=== PATIENT | male | born 1960 ===

== ENCOUNTER 2024-04-10 12:53 | Outpatient (REF) | payer BC, SELFPAY ==
--- NOTE | ~2024-04-10 | US_ITS ---
Procedure: Endovascular ablation of the left greater saphenous vein and left smaller saphenous vein with VenaSeal HISTORY: Varicose veins INDICATIONS: Symptomatically varicose veins left lower extremity. Symptoms include pain, swelling, PROCEDURE/FINDINGS: Informed consent was obtained following a discussion of the risks and benefits of the procedure with the patient. The patient was placed supine on the ultrasound procedure table. Preliminary ultrasound demonstrates dilated refluxing left greater saphenous vein. A site was marked on the left medial leg . The left leg was sterilely prepped and draped. Following the administration of 1% lidocaine for local anesthesia, the greater saphenous vein was accessed with a 21-gauge micropuncture needle under direct ultrasound guidance. The needle was exchanged for the transitional dilator over a 0.018 guidewire. A 0.035 guidewire was then advanced to the saphenofemoral junction. The VenaSeal sheath was then inserted over the wire and positioned 10 cm from the saphenofemoral junction. VenaSeal glue was then delivered along the length of the greater saphenous vein while retracting the catheter with compression at the saphenofemoral junction to prevent glue from traveling forward. The delivery device was removed and hemostasis was achieved with manual compression. Postprocedure ultrasound demonstrates successful occlusion of the treated veins with widely patent and compressible saphenofemoral junction. The patient was then repositioned to be prone. Preliminary ultrasound demonstrates dilated refluxing left smaller saphenous vein. A site was marked on the left posterior leg . The left leg was sterilely prepped and draped. Following the administration of 1% lidocaine for local anesthesia, the smaller saphenous vein was accessed with a 21-gauge micropuncture needle under direct ultrasound guidance. The needle was exchanged for the transitional dilator over a 0.018 guidewire. A 0.035 guidewire was then advanced to the ssv above the knee (there is thigh extension variant). The VenaSeal sheath was then inserted over the wire. VenaSeal glue was then delivered along the length of the smaller saphenous vein while retracting the catheter with compression at the popliteal fossa to prevent glue from traveling forward. The delivery device was removed and hemostasis was achieved with manual compression. Postprocedure ultrasound demonstrates successful occlusion of the treated veins with widely patent and compressible popliteal vein. Patient tolerated the procedure well without immediate complication. US/US venaseal vein closure subse IMPRESSION: Successful VenaSeal ablation of the left greater and smaller saphenous veins. Follow-up ultrasound in 5-10 days Electronically signed by: Nathan Cobb MD 04/10/2024 02:39 PM [facility]
--- OUTSIDE RECORDS SUMMARY | 2024-04-10 13:47 | XMS_ITS | Data Portability ---
Author Organization [facility], [facility] Address [address] [place] [address] Care Team Providers Care Field Project Manager Name Role Phone RAHUL MULLEN Primary Care Provider Unakailee ilzacarias Assessment Encounter Date Assessment Date Assessment LastModified by Organization Details LastModified Time 06/07/2018 06/07/2018 Arthritis of kne e. Referral to sports med. [email or web address] Not available 06/07/2018 10:36:43 01/29/2019 01/29/2019 Barium swallow ordered. F/u dependent on results. [email or web address] Not available 01/29/2019 12:36:04 03/01/2019 03/01/2019 Main problem is obesity and GERD. Counseled to lose wgt. LPR--to take omeprazole and then get off it. Will get x-ray of right forearm. He will call if lesion on his right knee does not heal. Not available 03/01/2019 09:06:34 08/29/2019 08/29/2019 Onychomycosis. Will check Alt and start Lamisil. Has difficulty with urine stream and gets up in night. FH of prostate ca. Lipids are elevated, but it was non-fasting. Will check PSA and lipids. Patient agreed to this visit via phone or secure telehealth platform due to the COVID -19 pandemic. Patient understands this is a scheduled visit and the usual procedures with regard to billing and confidentiality apply. Patient was notified that the provider location is [facility] [place] Patient location: home During the visit the patient? s medical history and medical record were reviewed. The patient was notified to call our office for worsening or urgent symptoms. Not available 08/29/2019 09:02:35 Plan of Treatment Reminders Order Date Submit Date Provider Last Modified By Organization Details Last Modified Time Details Appointments None recorded. Lab lipid panel, serum [address] [facility], [address] [place], [address], 0 10:29:54 ALT (alanine aminotransf erase), serum or plasma [address] [facility], [address] [place], [address], 0 10:29:54 PSA, serum or plasma 2019 [address]20 [facility], [address] [place], [address], 0 10:29:54 Referral sports medicine referral 2018 019 [email or web address] Lentz MD, [address] [place], [address], 9 15:21:26 physical therapy knee referral - Left knee OAHip and Core Strengtheni ngImprove balance and gaitImprove ant/post chain strengthHEP 2018 019 [email or web address] At Physical Therapy - [facility] [address] [place], [address], 9 15:45:46 Procedures None recorded. Surgeries None recorded. Imaging XR, knee, weightbeari ng - weightbeari ng x-rays left knee r/o OA 2018 019 [facility] ([facility]), [address], [place], [address], 9 14:43:48 barium swallow study - Patient with difficulty swallowing food; food is getting stuck with choking episodes. No problems with liquids. 2018 019 [facility], [address] [place], [address], 9 12:41:15 XR, forearm 2018 019 [facility] [address] , [place], [address], 9 10:00:55 Medication Orders None recorded. Patient TargetsNo targets recorded. Patient Instructions Encounter Date Encounter Id Patient Instructions Last Modified By Organization Details Last Modified Time 06/12/2018 [id number] Use Ice and anti-inflammatory medication as needed Have x-rays done Go to physical therapy Follow-up in 8 weeks for re-evaluation Not available 06/12/2018 13:15:10 All of the patients questions were answered and they understand the plan of care. Thank you for allowing me to participate in the care of your patient. Please feel free to contact me with any questions regarding their care. Not available 06/12/2018 13:20:22 03/01/2019 [id number] high cholesterol lifestyle changes Not available 03/01/2019 09:06:35 Well Visit 50 to 65: Care Instructions Not available 03/01/2019 09:06:35 Prostate Cancer Screening using PSA was discussed. The U.[place]. Preventive Services Task Force advises not to make a PSA test a part of the standard exam for men ages 55-69. Instead they recommend the uncertainties about the test be discussed and ordered only if a patient still wants it. Over their lifetimes as many as 50% or more of men will develop prostate cancer but only 2% of men will of prostate cancer. For men who chose to be screened for prostate cancer if 1000 men are screened with a psa test over a 15 year period there might be 1-2 deaths prevented however 235 men will have a biopsy with risk of infection, bleeding and Pain, 100 men will have their prostate removed by surgery or radiation treatments and 60-70 of those will suffer incontinence or impotence. There is also the risk of anesthesia or radiation complications. For men over 70 prostate cancer screening offered no benefit and risked pain, worry, expense and possibly shorter life expectancy. [email or web address] Not available 03/01/2019 08:11:10 08/29/2019 [id number] high cholesterol lifestyle changes Not available 08/29/2019 09:00:46 Well Visit 50 to 65: Care Instructions Not available 08/29/2019 09:00:45 Reason for Referral Referring Physician: Ortiz Marks, Family Medicine, Encounter Date: 06/07/2018 Left knee OAHip and Core Str engtheningImprove balance and gaitImprove ant/post chain strengthHEP Referring Physician: Scooby Lentz, Sports Medicine, Encounter Date: 06/12/2018 Results Created Date Observation Date Name Description Value Unit Range Abnormal Flag Note LastModifiedBy Organization Detail LastModifiedTime 06/13/19 19 06/12/2018 XR, knee, weigh tbear ing OBSERV ATION: HISTOR Y: Chroni c knee pain. TEQHNI QUE: 4 views left knee. COMPAR BERTIN: None. FINDIN GS: No acute fractu re or disloc ation. Normal medial , latera l and patell ofemor al joint spaces . Normal alignm ent of the bones. No joint effusi on. IMPRES PURVI: No acute findin gs. POS-VM G Electr onical ly signed Davida neal Physic chapo: Guerda Salgado [facility] [address], [place], [address], 06/13/2018 11:24:52 01/31/20 19 01/30/2019 bipin covarrubias study No observ ation record ed. [facility] [address] [facility], [place], [address], 01/30/2019 18:33:51 03/01/20 19 03/01/2019 XR, forea rm OBSERV ATION: Right forear m: Histor y: Palpab le lump Fronta l and latera l views disclo se no trauma tic or destru ctive bony abnorm ality. No cortic al irregu larity . There is eviden ce of ulna minus varian t. No opaque soft tissue foreig n body appare nt. IMPRES PURVI: No signif icant bony abnorm ality to accoun t for a palpab le lump. POS - VMG Electr onical ly signed Davida neal Physic chapo: Steve Messina MD [facility] [address] [place], [address], 03/04/2019 07:28:52 Result Notes None recorded. Problems Name Problem SNOMED Code Status Onset Date Resolution Date Notes Provider Name and Address Organization Details Recorded Time Obesity 542646340 Active 2015 Eliseo Marks MD [address] [place] [address], [phone] , [facility] 6 09:07:46 Onychomyco sis of toenails 542584915 Active 2016 Eliseo Marks MD [address] [place] [address], [address] , [facility] 7 09:50:48 History of cholecyste ctomy 494019095 Active 2017 Eliseo Marks MD [address] [place] [address], [address] , [facility] 8 16:07:15 Small bowel obstructio n 212007603 Active 2017 Eliseo Marks MD [address] [place] [address], , [facility] 8 13:54:35 Thrombophl ebitis 76797132 Active 2017 Eliseo Marks MD [address] [place] [address], , [facility] 8 13:54:55 Gastroesop hageal reflux disease 972767415 Active 2018 Eliseo Marks MD [address] [place] [address], [address] , [facility] 9 08:51:59 Laryngopha ryngeal reflux 672796360 Active 2018 Eliseo Marks MD [address] [place] [address], [address] , [facility] 9 08:52:52 Mixed hyperlipid emia 183192017 Active 2000 Eliseo Marks MD [address] [place] [address], [address] , [facility] 5 09:09:31 Headache 95547808 Completed 10/02/2014 Antwon Jennings III, MD [address] [place] [address], [address] , [facility] 5 17:00:34 Sleep apnea 97712706 Active 2001 Eliseo Marks MD [address] [place] [address], [address] , [facility] 5 09:09:31 Carpal tunnel syndrome 45837535 Completed 200210/02/2014 Antwon Jennings III, MD [address] [place] [address], [address] , [facility] 5 17:00:34 Sleep hypoventil ation 173385687 Completed 08/18/2010 Not Available [facility] 3 03:10:12 Hip pain 11900836 Completed 200108/18/2010 Not Available [facility] 3 03:10:12 Sprain of ankle 38801420 Completed 200008/18/2010 Not Available [facility] 3 03:10:12 Contact dermatitis caused by detergent 99963709 Completed 200008/19/2010 Not Available [facility] 3 03:10:12 Esotropia 49597119 Completed 200808/18/2010 Not Available [facility] 3 03:10:12 Joint pain in ankle and foot Completed 200006/07/2011 Not Available [facility] 3 03:10:12 Disorder of lipid metabolism 959214997 Completed 199908/19/2010 Not Available [facility] 3 03:10:12 Congenital valgus deformity of foot 59964049 Completed 200806/07/2011 Not Available [facility] 3 03:10:12 Pneumonia 454365615 Completed 200806/07/2011 Not Available [facility] 3 03:10:12 Verruca vulgaris 90148430 Completed 200601/31/2013 Not Available [facility] 3 02:02:13 Hand joint pain 778846518 Completed 200008/18/2010 Not Available [facility] 3 03:10:12 Knee pain Completed 200108/18/2010 Not Available [facility] 3 03:10:12 Injury of knee 174878136 Completed 200008/18/2010 Not Available [facility] 3 03:10:12 Dysphagia 85322822 Completed 200008/18/2010 Not Available [facility] 3 03:10:12 Disorder of eye movements 86355844 Completed 08/18/2010 Not Available [facility] 3 03:10:12 Synovitis/ tenosynovi tis - hand 109776955 Completed 200708/18/2010 Not Available [facility] 3 03:10:12 Sprain of knee and leg Completed 200606/07/2011 Not Available [facility] 3 03:10:12 Low back pain 933935865 Completed 200406/07/2011 Not Available [facility] 3 03:10:12 Hyperlipid emia 03893176 Completed 200206/07/2011 Not Available [facility] 3 03:10:12 Pain in wrist 95968383 Completed 200508/18/2010 Not Available [facility] 3 03:10:12 Problem Notes None recorded. Procedures Surgical History Date Name Laterality Status Provider Name and Address Organization Details Recorded Time 8 Post hospital/SNF follow-up/Trans itional Care completed Manisha Ann LPN [facility] 07/20/2017 15:47:53 7 POC Strep Testing completed Aida Severino RN [facility] 02/23/2017 11:47:28 6 POC Flu Testing completed Yari Oconnor MA [facility] 07/01/2015 09:52:58 3 Treatment and Advice completed Tish Michael, PT [address] [place], [address], [facility] 10/09/2012 09:06:06 2 Destruction of skin lesion completed Antwon Jennings III, MD [address] [place] [address], [phone], [facility] 06/08/2011 09:13:07 Imaging Results Imaging Date Name Status LastModified by Organization Details LastModified Time 06/12/2018 XR, knee, weightbearing completed [facility] [address] [place], [address], 06/13/2018 11:24:52 01/30/2019 barium swallow study completed [facility] [address] [place], [address], 01/30/2019 18:33:51 03/01/2019 XR, forearm completed [facility]) [address] [place], [address], 03/04/2019 07:28:52 Procedure Notes None recorded. Medical Equipment None Reported. Allergies Allergen ID Allergen Name Allergen Category Reaction Reaction Severity Criticality Documentation Date Start Date Code Code System Note Provider Name and Address Organization Details Recorded Time 7979 codeine medicatio n Not available Not available Not available 06/18/2008 2670 RxNorm Not Available [facility] 1 06:05:20 7980 propoxyph traci hydrochlo ride medicatio n Not available Not available Not available 06/18/2008 39342 RxNorm Not Available [facility] 1 06:05:20 7981 morphine medicatio n Not available Not available Not available 06/18/2008 7052 RxNorm Not Available [facility] 1 06:05:41 7982 Demerol medicatio n Not available Not available Not available 06/18/2008 59008 1 RxNorm Not Available [facility] 1 06:05:20 Medications Name Sig Start Date Stop Date Status Note LastModified by Organization Details LastModified Time Prescript ion - Prior Authoriza tion Request 02/16 completed Not Available Not Available Not Available amoxicill in 500 mg capsule Take 1 capsule 3 times a day by oral route as directed for 10 days. 04/07 completed Not Available Not Available Not Available clonidine HCl 0.1 mg tablet Take 1 to two tablet (0.1 mg) by oral route 3 times per day for BP above 160/110 2010 active Not Available Not Available Not Avai lable prednison e 10 mg tablet 40 mg daily for 5 days then 20mg.per day for 5 days active Not Available Not Available No t Available atorvasta tin 10 mg tablet TAKE ONE TABLET BY MOUTH EVERY DAY 01/29 completed Not Available Not Available Not Available azithromy joseph 250 mg tablet Take 2 tablets (500 mg) by oral route once daily for 1 day then 1 tablet (250 mg) by oral route once daily for 4 days 06/01 completed Not Available Not Available Not Available pravastat in 40 mg tablet Take 1 tablet every day by oral route as directed for 90 days. 2011 active Not Available Not Available Not Avai lable meloxicam 15 mg tablet Take 1 tablet every day by oral route with meals for 10 days. 01/29 completed 06/07/18 finished but unsure if will be renewed. Not Available Not Available Not Available ciproflox acin 500 mg tablet Take 1 tablet every 12 hours by oral route with meals for 3 days. active Not Available Not Available No t Available Tamiflu 75 mg capsule Take 1 capsule twice a day by oral route for 5 days. 02/17 completed Not Available Not Available Not Available omeprazol e 40 mg capsule,d elayed release TAKE ONE CAPSULE BY MOUTH DAILY 02/16 completed Not Available Not Available Not Available aspirin 81 mg tablet,de layed release Take 1 tablet every day by oral route. active Not Available Not Available No t Available simvastat in 40 mg tablet Take 1 tablet every day by oral route as directed for 90 days. 2011 active Not Available Not Available Not Avai lable Lipitor 20 mg tablet Take 1 tablet every day by oral route as directed for 90 days. active does not need, pravasta tin is covered Not Available Not Available Not Available terbinafi ne HCl 250 mg tablet Take 1 tablet every day by oral route for 90 days. 2019 active Not Available Not Available Not Avai lable doxycycli ne monohydra te 100 mg capsule 08/17 completed Not Available Not Available Not Available simvastat in 20 mg tablet Take 1 tablet every day by oral route. active Not Available Not Available No t Available lisinopri l 10 mg tablet Take 2 tablets every day by oral route for 30 days. 2010 active Not Available Not Available Not Avai lable omeprazol e 20 mg capsule,d elayed release Take 1 capsule every day by oral route. active Not Available Not Available No t Available hydroxyzi ne HCl 25 mg tablet Take 1 tablet 4 times a day by oral route as needed. 2010 active Not Available Not Available Not Avai lable Culturell e 10 billion cell capsule Take 1 capsule every day by oral route as directed . 2018 active Not Available Not Available Not Avai lable fluticaso ne propionat e 50 mcg/actua tion nasal spray,amy pension Elm Mott 2 sprays every day by intranas al route. 2010 active Not Available Not Available Not Avai lable doxycycli ne hyclate 100 mg tablet Take 2 tablets at once 01/29 completed Not Available Not Available Not Available Tums 200 mg (as calcium carbonate 500 mg) chewable tablet Take 2 tablets twice a day by oral route. 01/29 completed Not Available Not Available Not Available amoxicill in 875 mg-potass ium clavulana te 125 mg tablet Take 1 tablet every 12 hours by oral route for 10 days. 06/01 completed Not Available Not Available Not Available tobramyci n 0.3 %-dexamet hasone 0.1 % eye drops,amy pension 02/17 completed Not Available Not Available Not Available Prilosec OTC 20 mg tablet,de layed release Take 1 tablet every day by oral route as directed . 07/20 completed per [facility] d/c summary Not Available Not Available Not Available quinine 324 mg capsule Take 1 to 2 caps Daily as needed active Not Available Not Available No t Available Tums 2 daily OTC active Not Available Not Available No t Available Clindamyc in Pediatric 75 mg/5 mL oral solution Take 20 mL 3 times a day by oral route as directed for 10 days. 07/20 completed Not Available Not Available Not Available Fluarix Quad 7326-0234 (PF) 60 mcg (15 mcg x 4)/0.5 mL IM syringe 02/16 completed Not Available Not Available Not Available Tylenol 325 mg capsule Take 1 capsule every 4 hours by oral route as needed for 5 days. 10/12 completed per [facility] d/c summary PRN Not Available Not Available Not Available Vitals Date Recorded Body height Provider Name an d Address Organization Details Last Updated DateTime 06/07/2018 177.8 cm Manisha Ann LPN [facility] Lore schaefer [facility] 06/07/2018 10:21:50 Date Recorded Body mass index (BMI) Body weight Provider Name and Address Organization Details Last Updated DateTime 06/07/2018 35.5 kg/m2 516180.75 g Manisha Ann LPN [facility] 06/07/2018 10:24:52 Date Recorded Heart rate Provider Name an d Address Organization Details Last Updated DateTime 06/07/2018 68 /min Manisha Ann LPN [facility] [place] 06/07/2018 10:28:35 Date Recorded Body height Provider Name an d Address Organization Details Last Updated DateTime 06/12/2018 177.8 cm Adrianne Murphy [place] [facility]12[facility] 13:00:05 Date Recorded Heart rate Provider Name an d Address Organization Details Last Updated DateTime 06/12/2018 68 /min Adrianne Murphy [place] [facility] 06/12/2018 13:04:24 Date Recorded Body height Provider Name an d Address Organization Details Last Updated DateTime 01/29/2019 177.8 cm Rhonda Lynn [place] [facility] [place] 01/29/2019 08:17:33 Date Recorded Body mass index (BMI) Body weight Provider Name and Address Organization Details Last Updated DateTime 01/29/2019 35.6 kg/m2 035271.91 g Rhonda Lynn MA [facility] 01/29/2019 08:18:59 Date Recorded Heart rate Provider Name an d Address Organization Details Last Updated DateTime 01/29/2019 68 /min Rhonda Lynn [place] [facility] [place] [facility] 01/29/2019 08:23:11 Date Recorded Body height Provider Name an d Address Organization Details Last Updated DateTime 03/01/2019 177.8 cm Manisha Ann [facility]PN [facility] 03/01/2019 08:10:37 Date Recorded Body mass index (BMI) Body weight Provider Name and Address Organization Details Last Updated DateTime 03/01/2019 36 kg/m2 569306.68 g Manisha Ann LPN [facility] 03/01/2019 08:24:21 Date Recorded Heart rate Provider Name an d Address Organization Details Last Updated DateTime 03/01/2019 76 /min [facility] 03/01/2019 08:28:26 Date Recorded Body height Provider Name an d Address Organization Details Last Updated DateTime 08/29/2019 177.8 cm Ana Rubio [facility] neeru [facility] 08/29/2019 08:44:53 Date Recorded Body mass index (BMI) Body weight Provider Name and Address Organization Details Last Updated DateTime 08/29/2019 34.5 kg/m2 506897.[address] [facility] 08/29/2019 08:45:24 Date Recorded Systolic blood pressure Diastolic blood pressure Provider Name and Address Organization Details Last Updated DateTime 06/07/2018 118 mm[Hg] 78 mm[Hg] Manisha Ann LPN [facility] 06/07/2018 10:26:39 Date Recorded Systolic blood pressure Diastolic blood pressure Provider Name and Address Organization Details Last Updated DateTime 06/12/2018 110 mm[Hg] 70 mm[Hg] Adrianne Murphy [facility] 06/12/2018 13:04:22 Date Recorded Systolic blood pressure Diastolic blood pressure Provider Name and Address Organization Details Last Updated DateTime 01/29/2019 112 mm[Hg] 78 mm[Hg] Rhonda Lynn [facility] 01/29/2019 08:22:36 Date Recorded Systolic blood pressure Diastolic blood pressure Provider Name and Address Organization Details Last Updated DateTime 03/01/2019 114 mm[Hg] 74 mm[Hg] Manisha Ann LPN [facility] 03/01/2019 08:27:55 Social History Question Answer Notes LastModified by Organizat ion Details LastModified Time Tobacco Smoking Status Never Smoker 08/29/19 RYLAND Prado [facility] 03/01/2019 08:25:21 Do You Have An Advance Directive? Yes [id number] Information not available 01/28/2011 What Is Your Level Of Alcohol Consumption? None 08/29/19 JI Information not available 10/04/2012 Do You Wear A Helmet When Biking? No Information not available 01/24/2015 What Is Your Level Of Caffeine Consumption? None Information not available 01/24/2015 How Much Tobacco Do You Chew? None Information not available 10/04/2012 What Type Of Diet Are You Following? REGULAR Information not available 01/24/2015 Do You Or Have You Ever Used E-cigarettes Or Vape? Never Used Electronic Cigarettes 08/29/19 JI Information not available 03/01/2019 How Many Days In The Past Year Have You Had A Heavy Drinking Consumption (4+ Female, 5+ Male)? 0 Information not available 02/22/2018 Are There Any Guns Present In Your Home? No Information not available 01/24/2015 Live Alone Or With Others? With Others Information not available 01/24/2015 Does The Patient Have Difficulty Speaking Chinese? No Information not available 01/24/2015 Does The Patient Have Difficulty Reading Chinese? No Information not available 01/24/2015 Patient Has Health Care Proxy Signed And In Chart No Christina Raymond [email or web address] Information not available 02/27/2018 Marital Status Informatio n not available 01/24/2015 Mosquito Repellent Used Routinely No Information not available 01/24/2015 What Was The Date Of Your Most Recent Tobacco Screening? 08/29/2019 08/29/19 JI Information not available 08/29/2019 How Many Children Do You Have? 3 Information not available 01/24/2015 Seat Belts Used Routinely Yes Information not available 01/24/2015 Smoke Alarm In Home Yes Information not available 01/24/2015 Do You Or Have You Ever Used Smokeless Tobacco? Never Used Smokeless Tobacco 08/29/19 JI Information not available 03/01/2019 How Much Tobacco Do You Smoke? No 08/29/19 JI Information not available 08/29/2019 General Stress Level Low Information not available 01/24/2015 Do You Use Sunscreen Routinely? No Information not available 01/24/2015 Sex: Unknown Functional Status None recorded. Mental Status None recorded. Family History Relationship Description Onset Age of this Age Resolved Age Notes LastModified by Organization Details LastModified Time Father Heart disease [email or web address] Not available 2012 14:55:23 Notes:Cardiovascular: Family history is remarkable for hyperlipidemia , hypertension and coronary artery disease. Endocrine: Family history is remarkable for diabetes mellitus. Medical History Condition Response Hyperlipidemia Y Immunizations Vaccine Type Date Status Note Provider Nam e and Address Organization Details Recorded Time Influenza, split virus, trivalent, preservative 1 completed Not Available [facility] 03/31/2019 02:37:15 Influenza, split virus, trivalent, preservative 2 completed Not Available [facility] 03/31/2019 02:34:57 Influenza, split virus, trivalent, PF 3 completed Not Available [facility] 03/31/2019 02:18:57 Tdap 0 completed Not Available [facility] 01/27/2011 05:22:52 Influenza, split virus, trivalent, PF 4 completed Not Available [facility] 03/31/2019 02:19:22 Influenza, split virus, quadrivalent, PF 5 completed Not Available [facility] 03/31/2019 02:25:39 Influenza, split virus, quadrivalent, PF 6 completed Not Available [facility] 03/31/2019 02:25:33 Influenza, split virus, quadrivalent, preservative 7 completed Manisha Ann LPN [facility] 02/16/2017 09:33:27 Influenza, split virus, quadrivalent, preservative 8 completed Not Available [facility] 04/14/2019 02:10:43 Influenza, split virus, quadrivalent, preservative 9 [facility] 08:24:45 Influenza, split virus, trivalent, preservative 0 completed Not Available [facility] 03/31/2019 02:27:45 Hep A, adult 0 completed Not Available [facility] 03/31/2019 02:16:56 Past Encounters Encounter ID Performer Location Encounter Start Date Encounter Closed Date Diagnosis/Indication Diagnosis SNOMED-CT Code Diagnosis ICD10 Code Diagnosis Note [id number] [facility] [place] [address] [place] [address] 02/11/2000 09:45:00 04/03/2008 02:02:29 [id number] [facility] [place] [address] [place] [address] 1 07/22/2000 14:15:00 04/03/2008 02:02:29 [id number] [facility] [place] [address] [place] [address] 1 12/19/2000 13:45:00 04/03/2008 02:02:29 [id number] Radiology , [facility] [address] [place] [address] 12/19/2000 00:00:00 04/03/2008 02:02:29 [id number] Radiology , [facility] [address] [place] [address] 1 12/19/2000 15:00:00 04/03/2008 02:02:29 [id number] Radiology , [facility] [address] [place] [address] 12/22/2000 10:45:00 04/03/2008 02:02:29 [id number] [facility] [place] [address] [place] [address] 1 04/26/2001 09:45:00 04/03/2008 02:02:29 [id number] LAB - [facility] [address] [place] [address] 1 09/05/2001 13:52:56 04/03/2008 02:02:29 [id number] LAB - [facility] [address] [place] [id number] 02/06/2002 07:48:51 04/03/2008 02:02:29 [id number] [facility] [place] [address] [place] [address] 1 01/31/2002 11:04:40 04/03/2008 02:02:29 [id number] [facility] [place] [address] [place] [address] 1 06/21/2002 14:04:06 04/03/2008 02:02:[id number] [facility] [address] [place] [address] 1 07/31/2002 07:30:25 04/03/2008 02:02:[id number] [facility] [place] [address] 1 01/22/2003 13:48:28 01/22/2003 14:02:03 [id number] [facility] [place] [address] [place] [address] 1 02/01/2003 08:36:28 02/01/2003 16:17:[id number] [facility] [place] [address] 1 04/02/2003 12:21:43 04/02/2003 13:01:[id number] [facility] [place] [address] 1 08/08/2003 07:25:32 08/08/2003 11:17:[id number] [facility] [place] [address] 1 01/15/2004 07:43:16 01/15/2004 09:17:51 [id number] [facility] [place] [address] [place] [address] 1 02/11/2004 09:23:22 02/11/2004 17:15:[id number] [facility] [place] [address] 1 07/15/2004 07:38:47 07/15/2004 09:58:32 [id number] [facility] [place] [address] [place] [address] 1 10/22/2004 14:59:16 10/22/2004 17:13:[id number] [facility] [address] [place] [address] 1 01/19/2005 07:33:15 01/19/2005 09:35:57 [id number] [facility] [place] [address] [place] [address] 1 02/17/2005 15:40:15 02/17/2005 17:29:[id number] [facility] [place] [address] 1 07/20/2005 07:27:31 07/20/2005 16:10:[id number] [facility] [address] [place] [address] 1 02/08/2006 09:50:40 02/08/2006 09:50:47 [id number] Radiology , [facility] [address] [place] [id number] 02/22/2006 11:57:45 02/22/2006 14:05:00 [id number] [facility] , [facility] [address] [place] [address] 02/22/2006 00:00:00 04/03/2008 02:02:29 [id number] [facility] [place] [address] [place] [address] 1 02/22/2006 11:53:18 02/22/2006 14:19:19 [id number] [facility] [address] [place] [address] 1 08/17/2006 10:12:00 08/17/2006 10:12:08 [id number] [facility] [place] [address] [place] [address] 1 02/28/2007 10:39:01 04/03/2008 02:02:29 [id number] [facility] [address] [place] [id number] 1 03/24/2007 09:36:18 03/24/2007 09:36:21 [id number] [facility] [place] [address] [place] [address] 1 03/28/2007 09:29:46 04/03/2008 02:02:29 [id number] [facility] [address] [place] [address] 1 07/04/2007 10:47:14 07/04/2007 10:47:17 [id number] [facility] [place] [address] [place] [address] 1 10/27/2007 14:46:23 04/03/2008 02:02:29 [id number] [facility] [address] [place] [address] 1 03/26/2008 09:09:18 03/26/2008 09:09:27 [id number] [facility] [place] [address] [place] [address] 1 06/18/2008 11:30:17 06/19/2008 08:29:54 [id number] [facility] , [facility] [address] [place] [address] 1 06/18/2008 12:40:25 06/20/2008 13:40:10 [id number] [facility] [place] [address] [place] [address] 1 09/10/2008 13:46:04 09/11/2008 10:54:14 [id number] Radiology , [facility] [place] [address] 1 06/18/2008 00:00:00 01/09/2009 02:00:52 [id number] Podiatry, [facility] [place] [address] 1 06/28/2008 09:05:55 06/28/2008 16:03:40 [id number] LAB - [facility] [place] [address] 1 09/24/2008 15:16:55 09/24/2008 15:17:04 [id number] [facility] OFFICE [address] [place] [address] [place] [address] 1 02/21/2009 09:47:07 02/24/2009 08:41:[id number] [place] [address] 1 03/28/2009 09:58:10 03/28/2009 14:26:45 [id number] [facility] OFF[facility] [address] [place] [address] [place] [address] 1 06/02/2009 15:48:09 06/03/2009 08:55:41 [id number] Podiatry, [facility] [place] [address] 1 09/23/2009 15:27:39 09/23/2009 17:36:[id number] [place] [address] 1 01/20/2010 14:46:49 01/21/2010 13:35:[id number] [place] [address] 1 01/29/2010 16:16:25 01/30/2010 10:09:31 [id number] [place] [address] [place] [address] 1 06/17/2010 15:25:42 06/18/2010 09:45:[id number] [address] [place] [address] 1 08/19/2010 09:14:11 08/20/2010 08:26:[id number] [facility] [address] [place] [address] 1 09/21/2010 13:39:31 09/21/2010 17:04:39 [id number] [facility], [address] [place] [address] 1 10/19/2010 13:32:00 10/19/2010 14:24:40 [id number] [facility], [address] [place] [address] 1 10/27/2010 09:34:56 10/27/2010 10:18:41 [id number] [facility], [address] [place], [place] [address] 1 11/06/2010 15:37:59 11/06/2010 16:19:04 [id number] [facility], [address] [place] [id number] 12/09/2010 09:34:05 12/09/2010 09:50:23 [id number] [facility], [address] [place] [id number] 1 01/15/2011 09:26:29 01/15/2011 10:01:01 [id number] [facility], [address] [place] [id number] 03/05/2011 15:19:38 03/05/2011 15:44:11 [id number] Podiatry, [address] [place] [address] 1 03/19/2011 11:53:37 03/19/2011 12:35:31 [id number] [facility], [address] [place] [id number] 06/08/2011 08:13:45 06/08/2011 08:37:09 [id number] [facility], [address] [place] [id number] 09/02/2011 14:39:15 09/02/2011 14:58:37 [id number] Frank LEE [place] [address] [address] [place] [address] 12/09/2011 08:36:17 12/10/2011 10:13:33 [id number] Malinda LEE [facility], [address] [place] [id number] 10/04/2012 11:12:19 10/04/2012 14:50:41 [id number] Radha Quinonez Physical Therapy, [facility] [place] [address] 1 10/09/2012 08:34:15 10/10/2012 10:10:09 [id number] Radha Quinonez Physical Therapy, [facility] [place] [address] 1 10/11/2012 16:34:14 10/12/2012 09:44:07 [id number] Radha Quinonez Physical [facility], [address] [place] [address] 1 10/19/2012 08:01:14 10/20/2012 08:20:33 [id number] Radha Quinonez Physical Therapy, [facility] [place] [address] 1 10/26/2012 08:07:25 10/26/2012 15:19:53 [id number] Radha Quinonez Physical [facility], [facility] [place] [address] 1 11/02/2012 08:39:52 11/06/2012 11:35:10 [id number] Radha Quinonez Physical [facility], [address] [place] [address] 1 11/09/2012 08:59:29 2012 09:16:16 [id number] Jaleesa Vasquez LPN , [facility] OFFICE [address] [place] [address] 11/23/2012 16:18:15 11/23/2012 16:28:00 Influenza vaccine needed [id number] , [facility] OFF[place] [address] [place] [id number] 12/12/2012 08:15:56 12/12/2012 08:46:59 Mixed hyperlipidemia [id number] Cholestero l is at goal Continue to work on diet and exercise as discussed Adult [facility] examination [id number] see Risk Assessment and Lifestyle Change Counseling section above Counseling [id number] Joint pain 46932602 Benign pro static hyperplasia without outflow obstruction [id number] Antwon Jennings III, MD , [facility] OFFICE [address] [place] [address] 01/31/2013 14:28:06 01/31/2013 14:53:29 Acute upper respiratory infection 20938043 Educated patient that URI is a viral illness of the upper airways. It is not bacterial and does not benefit from antibiotic s. Average duration of URI is 7-10 days but in a recent trial, treatment at 7-10 days of illness with antibiotic s, intranasal steroids, or placebo did not alter natural history at 3 weeks. Recommende d symptomati c treatments including NSAIDS, semi-uprig ht sleep position, antihistam amrit at HS, limited course of nasal sympathomi metics and/or cough syrups, and nasal saline rinses with soft squeeze bottle or Neti pot. Return for fevers > 101 for 3 days, worsening sinus pain, or failure to resolve in 2-4 weeks. [id number] Malinda Damico , [facility] [place]ICE [address] [place] [address] 1 01/15/2014 14:43:00 01/15/2014 15:35:51 Mixed hyperlipidemia 554042083 Cholestero l is at goal Continue to work on diet and exercise as discussed Adult [facility] th examination [id number] see Risk Assessment and Lifestyle Change Counseling section above Counseling [id number] Influenza vaccine needed [id number] 106 Multiple joint pain 09748779 Familial e ssential myoclonus 60517125 Sleep apnea 29097616 [id number] Eileen Mcdaniel [facility], [address] [place] [address] 08/30/2014 10:16:24 08/30/2014 10:41:55 Contact dermatitis caused by urushiol from [employer] poison jean claude Recurrent poison jean claude dermatitis (annually) . Now involving extensivel y on his left forearm. Exposure likely on 3 days ago. Became worse 2 days ago. Strategies to prevent future exposure discussed. Treatment options discussed. No clinical evidence of cellulitis . Will treat with Prednisone taper over 2 weeks. Indication s for UC/ER use reviewed. [id number] Eileen Mcdaniel , [facility] OFFICE [address] [place] [address] 09/04/2014 16:57:10 09/04/2014 17:20:47 Contact dermatitis caused by urushiol from [employer] poison jean claude [id number] Kajal Zhang , [facility] OFFICE [address] [place] [address] 1 10/02/2014 13:34:52 10/02/2014 13:57:19 Muscular headache 250056328 Neck pain 02514226 [id number] Radha Quinonez Physical Therapy, [facility] [address] [facility] [place] [place] [address] 10/03/2014 15:32:42 10/04/2014 09:19:16 Neck pain 39955900 [id number] Radha Quinonez Physical Therapy, [facility] [address] [place] [address] 10/07/2014 12:48:26 10/07/2014 16:59:28 Neck pain 90464555 [id number] Aurelia Roy Physical Therapy, [facility] [address] [place] [address] 1 10/10/2014 14:52:02 10/11/2014 07:55:57 Neck pain 48069818 [id number] Perla Saavedra , [facility] OFFICE [address] [place] [address] 01/24/2015 08:30:44 01/24/2015 09:27:27 Screening for disorder 061632083 Z11.59 Adult heal th examination 711020979 Z00.00 see Risk Assessment and Lifestyle Change Counseling section above Counseling 917966813 Z71 .9 Mixed hyperlipidemia 267 579882 E78.2 Cholestero l is at goal Cholestero l is not at goal Continue to work on diet and exercise as discussed Benign pro static hyperplasia without outflow obstruction 132224287 N40.0 Sleep apnea 80522372 G47 .30 Active or passive immunization 018927489 Z23 [id number] Claudette العراقي , [facility] OFFICE [address] [place] [address] 04/14/2015 15:58:54 04/14/2015 16:14:13 Bronchitis 38804039 J40 Acute uppe r respiratory infection 32545036 J06.9 Educated patient that URI is a viral illness of the upper airways. It is not bacterial and does not benefit from antibiotic s. Average duration of URI is 7-10 days but in a recent trial, treatment at 7-10 days of illness with antibiotic s, intranasal steroids, or placebo did not alter natural history at 3 weeks. Recommende d symptomati c treatments including NSAIDS, semi-uprig ht sleep position, antihistam amrit at HS, limited course of nasal sympathomi metics and/or cough syrups, and nasal saline rinses with soft squeeze bottle or Neti pot. Return for fevers > 101 for 3 days, worsening sinus pain, or failure to resolve in 2-4 weeks. [id number] Janell Ochoa LPN , [facility], OFFICE [address] [place] [address] 07/01/2015 09:39:52 07/01/2015 10:18:26 Influenza 5174430 J11.1 Acute sinusitis 03208873 J01.90 [id number] Eliseo Marks MD , [facility] OFFICE [address] [place] [address] 1 02/18/2016 08:40:52 02/18/2016 09:13:20 Adult health examination 192681528 Z00.00 see Risk Assessment and Lifestyle Change Counseling section above Counseling 364735101 Z71 .9 Active or passive immunization 360760752 Z23 Bunion 364754799 M20.12 Obesity 589980257 E66.9 [id number] Rodrigo Mijares DPM Podiatry, [address] [address] 02/19/2016 14:03:42 02/25/2016 12:18:50 Acquired hallux valgus 74909681 M20.12 [id number] Rodrigo Mijares DPM Podiatry, [address] [address] 03/31/2016 11:38:07 04/13/2016 14:06:57 Acquired hallux valgus 04091000 M20.12 [id number] Rodrigo Mijares DPM Podiatry, [address] [address] 05/19/2016 09:03:33 05/19/2016 09:49:00 Acquired hallux valgus 77181192 M20.12 [id number] Eliseo Marks MD , [facility] OFFICE [address] [place] [address] 1 02/16/2017 09:08:59 02/16/2017 10:01:39 Adult health examination 855580075 Z00.00 see Risk Assessment and Lifestyle Change Counseling section above Counseling 062374225 Z71 .9 Mixed hyperlipidemia 267 235799 E78.2 Cholestero l is at goal Cholestero l is not at goal Continue to work on diet and exercise as discussed Onychomyco sis of toenails 824033740 B35.1 Sleep apnea 92412187 G47 .30 [id number] Selene Panda MD , [facility] OFFICE [address] [place] [address] 1 02/23/2017 11:35:03 02/23/2017 12:19:25 Sore throat 525768055 J02.9 Your sore throat is not felt to be a strep throat. It is felt to be viral. Advice: Increase fluids a great deal, especially drink hot things like soup and tea. Rest, and I recommend napping 1-2 hours a day until you are better. Tylenol and/or ibuprofen for pain. Gargle with warm salt water several times a day; use 1/8 teaspoon of salt to 6-8 ounces of warm water. If your sore throat is still present in 5-7 days please contact us, and call sooner if you are developing significan t worsening such as developing a fever or inability to tolerate any oral intake. Acute sinusitis 30864349 J01.90 Your diagnosis is sinusitis. Most of the time sinusitis does not require antibiotic s as we can fight it off ourselves. The most important things to do are getting extra rest, additional fluids especially hot things like tea and soup, and 2 nasal sprays that I will explain. As far as the rest I recommend napping. This will help your immune system to fight off the infection. Use SALT WATER NOSE SPRAY frequently throughout the day or salt water cleansing of the sinuses with a Neti pot. Start using the salt water nasal spray right away. The other is a DECONGESTA NT NASAL SPRAY such as Afrin long-actin g 12 hour nasal decongesta nt spray. Use 2 sprays in each nostril morning and night for 3 DAYS ONLY. This is a nasal spray that can be harmful if used more than 3 days as it causes rebound swelling. However if you use it for just 2-3 days, it shrinks down the mucous membranes and allows your sinuses to clear. He is leaving on a trip to [place] in 5 days. He should fill the prescripti on for Augmentin and take it on the trip. If you are not having significan t improvemen t after 4-5 d, pls start the Augmentin. If you actually get a lot worse with a high fever you could start the Augmentin sooner.Def initely bring it on the trip [id number] Eliseo Marks MD , [facility], OFFICE [address] [place] [address] 06/01/2017 07:49:45 06/01/2017 08:27:41 Pain of right wrist 0542361135 51378 M25.531 Pain of right calf 78334 40071 [id number] M79.620 [id number] Scooby Lentz MD Sports Medicine, [facility] [address] [facility] [place] [address] 06/13/2017 09:18:21 06/13/2017 14:31:16 Strain of calf muscle 167561077 S86.111A Markos his right calf pain in my opinion is most consistent with a grade 2 strain of his gastrocnem ius. He does not have any focal defects in the muscle belly that I can palpate but with his edema and ecchymosis I feel likely this was at least a partial thickness tear. His Achilles tendon appears intact. Due to his I have also asked that he have a ultrasound to evaluate for DVT although I feel this is much less likely cause of his symptoms. I reviewed with him this diagnosis as well as discussing further treatment options. I have at this time advised that he be completely shut down from racquetbal l and any aggressive activities . I have given him a referral to physical therapy working on improving his calf strength as well as maintainin g his ankle range of motion. He will plan a follow-up with me in 4 weeks for reevaluati on. Pain in wrist 80496501 M 25.531 Markos his right wrist pain is primarily over his TFCC and extensor carpi ulnaris tendons. We discussed discomfort in this region including the possibilit y of a tear of his TFCC, subluxatio n of his ECU tendon, and/or tendinitis . At this time I have advised that he be shutdown from racquetbal l as well as wearing a volar wrist splint which was fitted to him in the office. He will plan to follow up for 4 weeks for reevaluati on. If he has persistent discomfort a corticoste roid injection of the TFCC at that time may provide him some relief of symptoms. [id number] Eliseo Marks MD , [facility], OFFICE [address] [place] [address] 07/20/2017 15:46:00 07/20/2017 16:22:40 History of cholecystectomy 695006594 Z90.49 Obesity 853222732 E66.9 [id number] Rodrigo Mijares DPM Podiatry, [address] [address] 08/15/2017 15:23:47 08/16/2017 08:46:15 Onychomycosis 912988277 B35.1 [id number] Eliseo Marks MD , [facility], OFFICE [address] [place] [address] 08/17/2017 13:19:51 08/17/2017 13:59:16 Obesity 011502224 E66.9 Thrombophlebitis 0224574 1 I80.9 Small annie l obstruction 372238839 K56.609 History of cholecystectomy 435822088 Z90.49 Mixed hyperlipidemia 267 540008 E78.2 Cholestero l is at goal Cholestero l is not at goal Continue to work on diet and exercise as discussed [id number] Scooby Lentz MD Sports Medicine, [address] [address] 08/22/2017 13:56:07 08/22/2017 14:24:50 Strain of calf muscle 521995993 S86.111A Markos is a 56-year-ol d male with right calf pain that I feel is secondary to grade 2 strain of his gastrocnem ius. At this time he appears to have recovered quite well. He no longer has any discomfort to palpation of his gastrocnem ius and has no pain with normal activities are resisted plantar flexion. I have advised that he can begin using a stationary bike and gradually attempt some running at a slow pace on a treadmill. After this he can gradually increase his activity and attempt to participat e in [employer]. He does understand that he is at increased risk for reinjury with high intensity activity such as [employer]. He will plan a follow-up with me as needed for further care. Pain in wrist 28803193 M 25.531 Markos' right wrist pain and continue to believe is secondary to injury to is TFCC. Overall he is doing quite well now after a brief period of splinting but has not been participat ing in [employer] due to his recent surgeries. I reviewed his diagnosis with him today in the office as well as discussing further treatment options including considerat ion of a corticoste roid injection as well as possible operative interventi on. At this point he would like to try returning to racqueCoteraal l to see how his pain is before deciding to proceed with the next step. He will plan follow-up with me in 4 weeks for reevaluati on if he has resumption pain at which time we can discuss potential advanced imaging for surgical planning versus a corticoste roid injection. [id number] Scooby Lentz MD Sports Medicine, [facility] [address] [facility] [place] [address] 09/26/2017 12:59:20 09/26/2017 13:16:39 Pain in wrist 45473899 M25.531 Markos is a 56-year-ol d male with right wrist pain that I believe is secondary to a tear of his TFCC. Unfortunat jose he has had persistent symptoms despite splinting and of the use of NSAIDs particular ly with any aggressive ulnar deviation or racquet sports. I reviewed is likely injury with him as well as discussing further treatment options. We discussed a trial of a corticoste roid injection within the TFCC as well as considerat ion of operative interventi on. At this time does not wish to pursue either of these options but would like to wait and see if he continues to have worsening symptoms when he plays more aggressive racqueCoteraal l. At this point he will participat e in activities as needed and wear his for splint for comfort. He will plan to follow up with me as needed for further care if he is having persistent or any worsening symptoms. [id number] Eliseo Marks MD , [facility] [place] [address] [place] [address] 10/12/2017 16:35:17 10/12/2017 17:00:49 Pre-surgery evaluation [id number] Z01.461 [id number] Eliseo Marks MD , [facility] [place] [address] [place] [address] 02/22/2018 09:18:58 02/22/2018 12:00:16 Mixed hyperlipidemia [id number] E78.2 Cholestero l is at goal Cholestero l is not at goal Continue to work on diet and exercise as discussed Adult [facility] examination [id number] Z00.00 see Risk Assessment and Lifestyle Change Counseling section above Counseling [id number] Z71 .9 Depression screening 171 902872 Z13.89 depression screening tool administer ed, entered into emr, scored and discussed, time greater than 7.5 minutes [id number] Eliseo Marks MD , [facility] [place] [address] [place] [address] 05/17/2018 11:27:12 05/17/2018 12:10:41 Patellofemoral stress syndrome [id number] M22.2X9 [id number] Eliseo Marks MD , [facility] [place] [address] [place] [address] 06/07/2018 10:20:14 06/07/2018 10:46:16 Osteoarthritis of left knee joint [id number] 31908 M17.12 [id number] Scooby Lentz MD Sports Medicine, [facility] [place] [address] [facility] [place] [address] 06/12/2018 12:58:27 06/12/2018 13:25:38 Knee pain [id number] M25.569 M25.562 Markos is a 57-year-ol d male with left knee pain that I believe is likely secondary to underlying osteoarthr itis. He has some mild medial joint line discomfort on exam as well as significan t crepitus with range of motion. I reviewed this diagnosis with him today in the office as well as discussing treatment options. We discussed physical therapy, NSAIDs, injection therapy, activity modificati on, and surgical interventi on. He has been using over-the-c ounter as well as prescripti on NSAIDs with some relief of symptoms. I have given her a prescripti on for physical therapy and he will call to set up an appointmen t. We discussed that he will also ice his knee at night. I did put in an order for a x-ray of his knee to evaluate for degree of osteoarthr itis present. He will plan a follow-up with me in 8 weeks reevaluati on. If he has persistent symptoms he would likely benefit from a corticoste roid injection in the future. [id number] Noris Mendoza D.O. , [facility] [place] [address] [place] [address] 01/29/2019 08:14:41 01/29/2019 08:43:10 Difficulty swallowing food [id number] R13.10 [id number] Eliseo Marks MD , [facility] [place] [place] [address] [place] [address] 03/01/2019 08:05:40 03/01/2019 09:26:25 Mixed hyperlipidemia 454345826 E78.2 Cholestero l is at goal Cholestero l is not at goal Continue to work on diet and exercise as discussed Adult heal th examination [id number] Z00.00 see Risk Assessment and Lifestyle Change Counseling section above Counseling [id number] Z71 .9 Depression screening 171 662052 Z13.89 depression screening tool administer ed, entered into emr, scored and discussed, time greater than 7.5 minutes Pain in right arm 484772 004 M79.389 [id number] Eliseo Marks MD , [facility] [place] [address] [place] [address] 08/29/2019 08:41:27 08/29/2019 09:06:25 Mixed hyperlipidemia 082580058 E78.2 Cholestero l is at goal Cholestero l is not at goal Continue to work on diet and exercise as discussed Adult heal th examination 129265971 Z00.00 see Risk Assessment and Lifestyle Change Counseling section above Counseling 442987740 Z71 .9 Depression screening 171 384470 Z13.89 depression screening tool administer ed, entered into emr, scored and discussed, time greater than 7.5 minutes Health Concerns Section Related Observation LastModified by Organization Detai ls LastModified Time None Recorded Concern Status LastModified by Organization Details LastModified Time None Recorded Advance Directives Directive Y: Payers Encounter Date Sequence Insurance Name Policy Number Policy Kern Covered Member ID Kern Member ID Guarantor Name 06/07/2018 1 [place] [id number] Markos Raymond [id number] Markos Raymond 06/12/2018 1 [place] [id number] Markos Raymond [id number] Markos Raymond 01/29/2019 1 [place] [id number] Markos Raymond [id number] Markos Raymond 03/01/2019 1 [place] [id number] Markos Raymond [id number] Markos Raymond 08/29/2019 1 [facility] VALUE PLUS ([facility] [place]) [id number] Markos Raymond [id number] Markos Raymond Notes Date Note Type Note Provider Name and Address Organization Details Recorded Time 9 text/html Still has pain in left knee, swelling. Unable to play racquetball as he would like. Eliseo Marks MD [address] [place] [address], [phone], [facility] 06/07/2018 10:38:47 9 text/html Markos is a 57-year-old male who presents today for a new complaint of left knee pain. He states he has had approximately 3 weeks of pain in his left knee. He describes pain and stiffness that occurred typically after participating in racquetball. He denies any pain while playing racquetball. He describes the pain as throughout the whole knee joint but more focal along the medial knee. He also describes some swelling which has improved recently. He denies any locking or instability. He denies any specific trauma or injury. He does describe some clicking and cracking noises when he moves his knee joint. He has never had any previous knee surgery or injections. Scooby Lentz MD [address] [place] [address], [phone], [facility] 06/12/2018 13:41:45 9 text/html Patient enters clinic today with c/o feeling like food is getting stuck in his throat. Symptoms present for > 8 years but recently more bothersome. States last week, he choked on a piece of meat that required large amounts of water to move down his esophagus. States he had an endoscopy in 2010; afterwards, he used tums and omeprazole short term but discontinued it. Two years ago, he had his gallbladder removed, had complications with the intubation resulting in trauma. Did see an ENT after that who performed a laryngoscopy that was normal . Noris Mendoza D.O. [address] [place], [phone], [facility] 01/29/2019 13:30:18 9 text/html Physical Exam/MaleReported bypatient.PHAPatient is here for a Wellness Visit. He describes his health status as good. Patient's health is the same as last year.Risk Assessment and Lifestyle Change Counseling-male 50-64Reported bypatient.Coronary Artery Disease Risk Assessment:No Family history of coronary artery disease; Regular exercise program; Eats a diet low in fats and high in fiber; No personal history of hypertension; Lipids in good range; No personal history of diabetes; No use of tobacco; No history of peripheral vascular disease, AAA, or carotid disease; No personal history of coronary artery disease Colon Cancer Risk Assessment:No family history of colon polyps or cancer; No history of adenomatous colon polyps Lung Cancer Risk Assessment:Never smoked; No asbestos exposure Risk for Sexually transmitted disease Assessment:No history of sexually transmitted disease; Monogamous relationship Cognitive/Behavioral Risk Assessment:No history of depression; No family history of depression Safety Risk Assessment:uses helmet for high velocity activities; uses seat belts; No evidence of abuse/neglectVMG HyperlipidemiaReported bypatient.Control:well controlled; improved since last visit; Patient understands medications are to lower cholesterol Compliance:compliant with medications; compliant with follow-up visits; compliant with diet Barriers to CareNo identified barriers to care Context:Nonsmoker; No ischemic heart disease; No peripheral vascular disease (54298); No diabetes; No carotid artery stenosis Associated Symptoms:normal liver function test; no muscle pain; no fatigue; no chest discomfort; no dyspnea; no change in exercise capacity Doing well on atorvastatin, but always tired and achey. Has sleep apnea. 6 or 7 hours sleep, always. Couldn't stand the machine but has retainer which helps. Weight gradually up. Now 260. Few years ago got down to 186. Now doing great sleeping better and happy. TAkes omeprazole maybe 3 times a week. Had some swallowing difficulty for awhile. Not getting much exercise. Eliseo Marks MD [address] [place] [address], [phone], [facility] 03/01/2019 09:07:46 0 text/html VMG HyperlipidemiaReported bypatient.Control:well controlled; improved since last visit; Patient understands medications are to lower cholesterol Compliance:compliant with medications; compliant with follow-up visits; compliant with diet Barriers to CareNo identified barriers to care Context:Nonsmoker; No ischemic heart disease; No peripheral vascular disease (39216); No diabetes; No carotid artery stenosis Associated Symptoms:normal liver function test; no muscle pain; no fatigue; no chest discomfort; no dyspnea; no change in exercise capacity Doing well on atorvastatin, but always tired and achey. Has sleep apnea. 6 or 7 hours sleep, always. Couldn't stand the machine but has retainer which helps. Weight gradually up. Now 260. Few years ago got down to 186. Now doing great sleeping better and happy. TAkes omeprazole maybe 3 times a week. Had some swallowing difficulty for awhile. Not getting much exercise. Doing well. Working from home. Eliseo Marks MD [address] [place] [address], [phone], [facility] 08/29/2019 09:05:48
--- OUTSIDE RECORDS SUMMARY | 2024-04-10 13:47 | XMS_ITS | Patient Health Record ---
Author Organization [facility] Address [address] [place] [address] Care Team Providers Care Javascript Developer Name Role Phone Jewel Rogers MD Primary Care Provider Aidan Kwan Unavailable [phone] Allergies Allergen (clinical drug ingredient) Drug/Non Drug Allergy documented on EMR Reaction Allergy Type Onset Date Status meperidine Demerol Unknown Drug Allergy Active valsartan Diovan Unknown Drug Allergy Active Reason For Referral No Information Medications Medication SIG (Take, Route, Frequency, Duration) Notes Start Date End Date Status Tums Active Probiotic Active Aspir-81 Active Omeprazole Active Social History Tobacco Use: Social History Observation Description Date Details (start date - stop date) Never Smoker NA - NA Tobacco Use/Smoking Question Answer Notes Are you a: nonsmoker Additional Findings: Tobacco Non-User Current no n-smoker Alcohol Screen Question Answer Notes Did you have a drink contain ing alcohol in the past year? Yes How often did you have a dri nk containing alcohol in the past year? Monthly or less (1 point) Points 1 Interpretation Negative Tobacco use other than smoking: Question Answer Notes Are you an other tobacco user? No Plan Of Treatment Pending Test Test Name Order Date [id number] 06/29/2022 45260- Debride <25 sq cm 08/17/2022 [id number] SKIN/TISSUE 07/13/2022 Insurance Providers Payer Name Payer Address Payer Phone Subscriber Number Group Number Insured Name Patient Relationship to Insured Coverage Start Date Coverage End Date [facility] [address] [place] [address] [id number] Markos Raymond Self - patient is the insured Medical (General) History Medical History History ICD Code Chicken pox Measles Mumps Reflux Surgical History Surgery Date(Month/Year)
--- OUTSIDE RECORDS SUMMARY | 2024-04-10 13:47 | XMS_ITS | Clinical Summary ---
Author Organization [facility] Address [phone] [address] [place] [address] Care Team Providers Care Cost Consultant Name Role Phone Karon Rogers MD Primary Care Provider [phone] Karon Rogers MD Unavailable [phone] Allergies Active Allergy Reactions Criticality Noted Date Comments Propoxyphene 07/10/2019 Meperidine 07/10/2019 Doxycycline Monohydrate Diarrhea,Other ( See Comments) 12/02/2022 Black stools Medications Medication Sig Dispensed Refills Start Date End Date Status Lactobacillus rhamnosus GG (CULTURELLE ORAL) Take 1 capsule by mouth daily. Active calcium carbonate 500 mg (200 mg elemental) chewable tablet Take 750 mg by mouth 2 (two) times a day. Active aspirin 81 MG EC tablet Take 81 mg by mouth daily. Active ibuprofen (ADVIL,MOTRIN) 200 MG tablet Take 600 mg by mouth. As needed Active omeprazole (PRILOSEC) 20 MG capsuleIndications: Gastroesophageal reflux disease, unspecified whether esophagitis present Take 1 capsule (20 mg total) by mouth daily. 90 capsule 2 04/14/2023 Active Additional Information Patient taking differently:20 mg Oral3 times weekly (MWF), Reported on 05/06/2023 ergocalciferol (DRISDOL) 50,000 unit capsuleIndications: Vitamin D deficiency Take 1 capsule (50,000 Units total) by mouth once a week. 12 capsule 05/06/2023 Active Additional Information Patient not taking.Reported on 11/18/2023 cholecalciferol (VITAMIN D3) 25 MCG (1,000 unit) tablet Take 1,000 Units by mouth daily. Active Active Problems Problem Noted Date Diagnosed Date Left leg swelling 11/16/2023 Overview (11/16/2023): US done 10/23 neg for DVT Cellulitis of right lower extremity 10/25/2022 Assessment & Plan (10/25/2022 1:13 PM EDT): The area beyond the ecchymosis consistent with cellulitis appearance. Treat with Augmentin 875 mg twice daily for 10 days instead of the Doxy but do not throw the Doxy away but rather take it on the trip to [facility] with you. In 4 weeks return to the lab for a Lyme titer. 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 Aware that the patient is trying to counter this with prescription glasses and for example. Make sure that you are well-hydrated, try to avoid screen time and while in [place] away from work see if the headaches resolve as that would be confirmation that the work in front of the computer screen is causing the headache. Screening for human immunodeficiency virus 03/25 Need for hepatitis C screening test 03/25/2022 Laryngopharyngeal reflux 07/10/2019 Gastroesophageal reflux disease 07/10/2019 Thrombophlebitis 07/10/2019 Hyperlipidemia 07/10/2019 Sleep apnea 07/10/2019 Immunizations Name Administration Dates Next Due COVID-19 (Pre-01/03) Pfizer Vaccine, mRNA, PF 08/08/2020,07/17/2020 Hepatitis A, Adult 10/19/2016,01/29/2010 Hepatitis B Adult 11/17/2016,10/19/2016 Influenza Quadrivalent MDCK Preservative Free IM 11/21/2018 Influenza Quadrivalent Prese rvative Free IM 12/12/2020,11/24/2019,12/06/2017,2015,01/24/2015 Influenza Quadrivalent w/ Preservative IM 12/13/2016 Influenza Trivalent Preserva tive Free IM 01/15/2014,11/23/2012 Influenza Trivalent w/ Prese rvative IM 12/09/2011,11/06/2010,01/20/2010 Influenza, Unspecified Formulation 12/18/2022, Tdap 03/26/2022,12/13/2009 Typhoid Inactivated 10/19/2016 Zoster recombinant 08/16/2022,04/17/2022 Family History Medical History Relation Comments Heart disease Father Prostate cancer Maternal Grandfather Cancer Maternal Grandmother Hyperlipidemia Mother Hypertension Mother Relation Status Comments Father Alive Maternal Grandfather Maternal Grandmother Mother Alive Social History Tobacco Use Types Packs/Day Years Used Date Smoking Tobacco: Never Smokeless Tobacco: Never Alcohol Use Standard Drinks/Week Comments Not Currently 0 (1 standard drink = 0.6 oz pur e alcohol) 1 glass of wine twice a year Child or Family Care Answer Date Record ed Do you have problems with on e of the following making it difficult for you to work, study, or receive health care? I choose not to answer 04/14/2023 Education Answer Date Recorded Are you interested in help w ith more adult education (for example, completing high school, GED, job training, learning the Italian language, technical skills, or developing parenting skills)? I choose not to answer 04/14/2023 Are you concerned about learning? Not on file 04/14/2023 No 04/14/2023 Yes 04/14/2023 Food Answer Date Recorded Within the past 6 months we worried whether our food would run out before we got money to buy more. I choose not to answer 04/14/2023 Within the past 6 months the food we bought just didn't last and we didn't have enough money to get more. I choose not to answer 04/14/2023 Residential Stability Answer Date Recor ded What is your housing situation today? I choose n ot to answer 04/14/2023 How many times have you move d in the past 12 months? I choose not to answer 04/14/2023 Paying for Meds Answer Date Recorded Do you have trouble paying for medicines? I annette se not to answer 04/14/2023 Paying Utility Bills Answer Date Record ed Do you have trouble paying y our heating or electricity bill? I choose not to answer 04/14/2023 Transportation Answer Date Recorded Has the lack of transportati on kept you from medical appointments or from getting medications? I choose not to answer 04/14/2023 Unemployment Answer Date Recorded Are you currently unemployed or working on a part-time or temporary basis, and looking for work? I choose not to answer 03/25/2022 Digital Access Answer Date Recorded No 04/14/2023 No 04/14/2023 Do you have reliable internet access at home? I choose not to answer 04/14/2023 Do you have a device (e.g., phone, tablet, computer) with a working camera? I choose not to answer 04/14/2023 Intimate Partner Violence Answer Date R ecorded Are you denied basic needs s uch as food, clothing, or medical care? No 11/18/2023 In the past 12 months have y ou been in a relationship with a person who hurts, threatens, or tries to control you? No 11/18/2023 Are you denied basic needs s uch as food, clothing, or medical care? No 11/18/2023 In the past 12 months have y ou been in a relationship with a person who hurts, threatens, or tries to control you? No 11/18/2023 Sex and Gender Information Value Date Recorded Sex Assigned at Male 03/25/2022 8:42 AM EST Gender Identity Male 03/25/2022 8:42 AM EST Sexual Orientation Straight 03/25/2022 8: 42 AM EST Last Filed Vital Signs Vital Sign Reading Time Taken Comments Blood Pressure 124/95 11/18/2023 3:27 PM EDT Pulse 72 11/18/2023 3:27 PM EDT Temperature 36.6 ??C (97.9 ??F) 11/18/2023 1:30 PM ED T Respiratory Rate 18 11/18/2023 3:27 PM EDT Oxygen Saturation 100% 11/18/2023 3:27 PM EDT Inhaled Oxygen Concentration - - Weight 118.8 kg (262 lb) 05/09/2023 9:46 AM EST Height 178.4 cm (5' 10.24 ) 05/09/2023 9:[address] Body Mass Index 37.34 05/09/2023 9:46 AM EST Plan of Treatment Upcoming Encounters Date Type Department Care Team (Late st Contact Info) Description 04/16/2024 3:00 PM EST Appointment [facility] Internal Medicine [address] [place] [address] Karon Rogers MD [address] [place] [address] [email or web address] 06/07/2024 10:30 AM EDT Office Visit [facility] [address] [place] [address] [address] [place], [place] [id number] David Levine MD [address] [facility], [address] [place] [address] [email or web address] Health Maintenance Due Date Last Done Comments HEPATITIS B SCREENING 1980 HEPATITIS C SCREENING 1980 HIV ONE-TIME SCREENING (18-65 YEARS) 1980 COLOGUARD 11/11/2007 FIT TEST 11/11/2007 FOBT 11/11/2007 SIGMOIDOSCOPY 11/11/2007 VIRTUAL COLONOSCOPY 11/11/2007 PNEUMOCOCCAL VACCINES (50+ years) (1 of 1 - PCV) 2012 HEPATITIS B VACCINES (3 of 3 - 19+ 3-dose series) 04/21/2017 11/17/2016, 10/19/2016 INFLUENZA VACCINE (#1) 2023 , 12/18/2022, 12/12/2020, Additional history exists COVID-19 VACCINE ( season) 2023 04/22/2021, 08/08/2020, 07/17/2020 DEPRESSION SCREENING 04/14/2024 04/14/2023 SCREENING FOR DIABETES 06/01/2026 06/02/2023, 2023 LIPID PANEL 09/13/2028 09/14/2023, 02/0 11/2023, 04/22/2023, Additional history exists Adult Td,Tdap Booster 03/26/2032 03/26/2022, 010 COLONOSCOPY 11/17/2033 11/18/2023, 04/09/2013 COLORECTAL CANCER SCREENING 11/17/2033 RSV VACCINE (1 - 1-dose 75+ series) 2037 HEPATITIS A VACCINES Aged Out 10/19/2016, 01/30/20 10 No longer eligible based on patient's age to complete this topic ZOSTER VACCINES Completed 08/16/2022, 04/17/2022 SMOKING STATUS SCREENING (Once After 26 Yrs) Completed 11/18/2023 HIB VACCINES Aged Out No longer eligi ble based on patient's age to complete this topic MENINGOCOCCAL VACCINES (ACWY) Aged Out No longer eligible based on patient's age to complete this topic Medical Devices Not on file Procedures Procedure Name Priority Date/Time Associated Diagnosis Comments ENDOSCOPY, COLON 11/18/2023 2:27 PM EDT LIPID PANEL Routine 09/14/2023 3:13 PM EDT Pure hypercholesterolemia from Last 3 Months or Most Recently Relevant to Health Maintenance Results * ENDOSCOPY, COLON (11/18/2023 2:27 PM EDT) Narrative Transcriptions David Rodriguez MD - 11/18/2023 2:27 PM EDT [facility] Patient Name: Markos Jaraduane Attending MD:: DAVID RODRIGUEZ MD, Procedure Date: 11/18/2023 2:27 PM Date of : 1960 Age: 63 Admit Type: Outpatient Gender: Male Room: [facility] 05 Referring MD: KARON ROGERS MD Exam Type: Colonoscopy Indications: Screening for colorectal malignant neoplasm, Last colonoscopy 10 years ago Medications: Monitored Anesthesia Care Procedure: Informed consent was obtained from the patientafter discussion of the indications, limitations, alternatives, benefits, and risks of the procedure. Risks specifically discussed include but are not limited to medication reactions, missed lesions, bleeding, perforation, or the need for emergent surgery. Throughout the procedure, the patient's blood pressure, pulse, end-tidal CO2, and oxygensaturations were monitored continuously. The Colonoscope was introduced through the anus and advanced to the cecum, identified by theappendiceal orifice. The colonoscopy was performed without difficulty. The patient tolerated the procedurewell. The quality of the bowel preparation was good. Anatomical landmarks were photographed. Complications: No immediate complications. Estimated blood loss:None. Findings: The perianal and digital rectal examinations were normal. The rectum, recto-sigmoid colon, sigmoid colon, descending colon, splenic flexure, transversecolon, hepatic flexure, ascending colon, cecum,appendiceal orifice, ileocecal valve, rectum (on retroflexion)and ascending colon (on retroflexion) appearednormal. Impression: - The rectum (on retroflexion), ascending colon (on retroflexion), rectum, sigmoid colon, descending colon, splenic flexure, transverse colon, hepatic flexure, ascending colon, cecum, recto-sigmoidcolon, ileocecal valve and appendiceal orifice arenormal. - No specimens collected. Recommendation: - Discharge patient to home. - Resume previous diet. - Continue present medications. - Repeat colonoscopy in 10 years for screening purposes. - Your colonoscopy was normal with no polyps or colitis. DAVID RODRIGUEZ MD 11/18/2023 3:04:44 PM This report has been signed electronically. Number of Addenda: 0 Note Initiated On: 11/18/2023 2:27 PM Procedure Code(s): --- Professional --- 37212, Colonoscopy, flexible; diagnostic, including collection of specimen(s) by brushing or washing, when performed (separateprocedure) --- Technical --- 97598, Colonoscopy, flexible; diagnostic, including collection of specimen(s) by brushing or washing, when performed (separateprocedure) Diagnosis Code(s): --- Professional --- Z12.11, Encounter for screening for malignantneoplasm of colon --- Technical --- Z12.11, Encounter for screening for malignantneoplasm of colon CPT copyright 2021 [employer]. All rights reserved. The codes documented in this report are preliminary and upon continuity manager reviewmay be revised to meet current compliance requirements. Procedure Date: 11/18/2023 2:27:[address] [place] [id number] Karon Rogers MD GI PROCEDURE ORDERAB LES * (ABNORMAL) Lipid panel (09/14/2023 3:13 PM EDT) HDL 45 mg/dL [facility] Comment: ? Interpretation <40 mg/dL: Low HDL cholesterol (major risk factor for CHD) Greater than or equal to 60 mg/dL: High HDL cholesterol ( negative risk factor for CHD) HDL - cholesterol is affected by a number of factors, e.g. smoking, excerise, hormones, sex and age. CHOLESTEROL 212 0 - 240 mg/dL [facility] TRIGLYCERIDES 217(H) 30 - 160 mg/dL [facility] LDL 124 50 - 129 mg/dL [facility] Comment: LDL levels in terms of risk for coronary heart disease: <100 mg/dL: Optimal 100-129 mg/dL: Near or above optimal 130-159 mg/dL: Borderline high 160-189 mg/dL: High >190 mg/dL: Very High CARDIAC RISK RATIO 4.7 3.4 - 5.0 [facility] Blood 09/14/2023 3:13 PM EDT 09/14/2023 8:53 PM EDT Karon Rogers MD LAB BLOOD ORDERABLES [facility] [address] [place] [address] from Last 3 Months or Most Recently Relevant to Health Maintenance Care Teams Cost Consultant Relationship Specialty Start Date End Date Karon Rogers MD [address] [place] [id number] PCP - General Internal Medicine 11/01/19 Karon oRgers MD [address] [place] [id number] Insurance Assigned Provider 06/18/23 Additional Source Comments The information contained in this document represents components of the legal health record. It is not the complete legal health record.[facility]
--- OUTSIDE RECORDS SUMMARY | 2024-04-10 13:48 | XMS_ITS | Encounter Summary ---
Author Organization [facility] Address [phone] [address] [place] [address] Care Team Providers Care Extension Forester Name Role Phone Jewel Rogers MD Primary Care Provider [phone] Jewel Rogers MD Unavailable [phone] Reason for Visit * Reason Onset Date Comments PA request 01/03/2024 Encounter Details Date Type Department Care Team (Late st Contact Info) Description 01/03/2024 Telephone [facility] Internal Medicine [address] [place], [place] [phone] Pallavi Paige CT [address] [place], [place] [id number] [email or web address] PA request Social History Tobacco Use Types Packs/Day Years [...] high school, GED, job training, learning the Mauritanian language, technical skills, or developing parenting skills)? [...] Orientation Straight 03/25/2022 8: 42 AM EST documented as of this encounter Progress Notes * Jewel Rogers MD - 01/03/2024 5:26 PM EDT Yes PA should come from original prescriber. * Pallavi Paige MA - 01/03/2024 4:09 PM EDT Received a call from [place]mond pharmacist at [facility] states Dr. Julian had ordered pt Restasis which needs a PA, Desmond contacted Dr. Julian office and was told PA needs to come from our office. Contacted Dr. Julian office was placed on hold and then transferred to on Kiara's at Dr. Julian office which states Desmond from [facility] called our office states restasis that Dr. Julian had ordered for pt needsa PA but Desmond was told PA needs to come from our office but this PA needs to come from original prescriber. Left our contact info along with [facility]'s phone number. Contacted Desmond at [facility] informed him that I've LM (as shown above) with Dr. Julian office and told Desmond PA should be from original prescriber-I've left them with [facility]'s contact info. documented in this encounter Plan of Treatment Upcoming Encounters Date Type Department Care Team (Late st Contact Info) Description 04/16/2024 3:00 PM EST Appointment [facility] [employer] Internal Medicine [address] [place] [id number] Jewel Rogers MD [address] [place] [address] 06/07/2024 10:30 AM EDT Office Visit [facility] [address] [place] [address] [address] [place] [address] David Levine MD [address] [facility], [address] [place] [address] [email or web address] documented as of this encounter Visit Diagnoses Not on filedocumented in this encounter Additional Health Concerns Assessment Noted Time PHQ-2 Depression Total Score: 0 04/14/19 24 3:35 PM EST documented as of this encounter Care Teams Extension Forester Relationship Specialty Start Date End Date Jewel Rogers MD [address] [place] [address] [email or web address] PCP - General Internal Medicine 11/01/19 Jewel Rogers MD [address] [place] [address] [email or web address] Insurance Assigned Provider 06/18/23 documented as of this encounter Additional Source Comments The information contained in this document represents components of the legal health record. It is not the complete legal health record.[facility]
--- OUTSIDE RECORDS SUMMARY | 2024-04-10 13:48 | XMS_ITS | Encounter Summary ---
Author Organization [facility] Address [phone] [address] [place] [address] Care Team Providers Care Spray Foam Installer Name Role Phone Jewel Rogers MD Primary Care Provider [phone] Jewel Rogers MD Unavailable Encounter Details Date Type Department Care Team (Late st Contact Info) Description 12/02/2022 Procedure Pass [facility], [address] [place] [address] Social History Tobacco Use Types Packs/Day Years Used Date Smoking Tobacco: Never Smokeless Tobacco: Never Alcohol Use Standard Drinks/Week Comments Not Currently 0 (1 standard drink = 0.6 oz pur e alcohol) Child or Family Care Answer Date Record ed Do you have problems with on e of the following making it difficult for you to work, study, or receive health care? I choose not to answer 03/25/2022 Education Answer Date Recorded Are you interested in help w ith more adult education (for example, completing high school, GED, job training, learning the [place] language, technical skills, or developing parenting skills)? I choose not to answer 03/25/2022 Food Answer Date Recorded Within the past 6 months we worried whether our food would run out before we got money to buy more. I choose not to answer 03/25/2022 Within the past 6 months the food we bought just didn't last and we didn't have enough money to get more. I choose not to answer 03/25/2022 Residential Stability Answer Date Recor ded What is your housing situation today? I choose n ot to answer 03/25/2022 How many times have you move d in the past 12 months? I choose not to answer 03/25/2022 Paying for Meds Answer Date Recorded Do you have trouble paying for medicines? I annette se not to answer 03/25/2022 Paying Utility Bills Answer Date Record ed Do you have trouble paying y our heating or electricity bill? I choose not to answer 03/25/2022 Transportation Answer Date Recorded Has the lack of transportati on kept you from medical appointments or from getting medications? I choose not to answer 03/25/2022 Unemployment Answer Date Recorded Are you currently unemployed or working on a part-time or temporary basis, and looking for work? I choose not to answer 03/25/2022 Digital Access Answer Date Recorded No 08/07/2022 No 08/07/2022 Reliable internet access at home? Not on file 08/07/2022 Device with a working camera? Not on file Sex and Gender Information Value Date Recorded Sex Assigned at Male 03/25/2022 8:42 AM EST Gender Identity Male 03/25/2022 8:42 AM EST Sexual Orientation Straight 03/25/2022 8: 42 AM EST documented as of this encounter Plan of Treatment Upcoming Encounters Date Type Department Care Team (Late st Contact Info) Description 04/16/2024 3:00 PM EST Appointment [facility] Internal Medicine [address] [place] [address] Jewel Rogers MD [address] [place] [address] 06/07/2024 10:30 AM EDT Office Visit [facility] [address] [place] [address] [address] [place] [address] David Levine MD [address] [facility], [address] [place] [address] documented as of this encounter Visit Diagnoses Not on filedocumented in this encounter Additional Health Concerns Assessment Noted Time PHQ-2 Depression Total Score: 0 03/25/19 8:34 AM EST documented as of this encounter Care Teams Spray Foam Installer Relationship Specialty Start Date End Date Jewel Rogers MD [address] [place] [address] [email or web address] PCP - General Internal Medicine 11/01/19 Jewel Rogers MD [address] [place] [address] [email or web address] Insurance Assigned Provider 06/18/23 documented as of this encounter Additional Source Comments The information contained in this document represents components of the legal health record. It is not the complete legal health record.[facility]
--- OUTSIDE RECORDS SUMMARY | 2024-04-10 13:48 | XMS_ITS | Clinical Summary ---
Author Organization [facility] [employer] [facility] Address [address] [place] [address] Care Team Providers Care Education Assistant Name Role Phone Eliseo Marks MD Primary Care Provider [phone] Immunizations Name Administration Dates Next Due Flucelvax Trivalent PFS IM; Without Preservative (18+ mos) 11/21/2018 Social History Tobacco Use Types Packs/Day Years Used Date Smoking Tobacco: Never Assessed Sex and Gender Information Value Date Recorded Sex Assigned at Not on file Legal Sex Male 2:49 PM EDT Gender Identity Not on file Sexual Orientation Not on file Plan of Treatment Health Maintenance Due Date Last Done Comments Colorectal Cancer: COLONOSCO PY Screening every 10 yrs (or Modifier) 1960 Depression: Screening Annual ly using PHQ-2/9 in Adults 18 yrs or above (or HM Modifier)([facility]) 1980 Hepatitis C Virus Infection in Adolescents and Adults: Screening (or Modifier) ([facility]) 1980 [facility] Screening Reminder: Karla pringle for all adults ([facility]) 1980 Tobacco Smoking Cessation: i n Adults excluding Women: Behavioral and Pharmacotherapy Interventions ([facility]) 1980 Lipid Screening: Every 5 yrs for Men aged 35+ (or HM Modifier) ([facility]) 1998 Colorectal Cancer Screening 45 -75 Yrs (or HM Modifier) 11/11/2007 Colorectal Cancer: FLEXIBLE SIGMOIDOSCOPY Screening every 5 yrs 11/11/2007 Colorectal Cancer: Fecal Immunochemical Test (FIT) Annually [facility] 11/11/2007 Colorectal Cancer: High-sens itivity gFOBT Screening Annually [facility] 11/11/2007 Colorectal Cancer: Stool Col oguard Screening every 3 yrs 11/11/2007 Colorectal Cancer:CT Colonog dixie Screening every 5 yrs 11/11/2007 Zoster/Shingles Vaccine Seri es Screening: Adults aged 18+ yrs (or HM Modifiers)([facility]) (1 of 2) 2012 DTaP/Tdap/Td Vaccines ([facility]) (2 - Td or Tdap) 12/14/2019 12/13/2009 Flu Vaccination: Yearly for ages 18mos through 64 years (or Modifier)([facility]) 10/13/2023 11/21/2018 COVID-19 Vaccine Screening: Initial Series and Booster Status ([facility]) ( - 2023- season) 2023 RSV Vaccines (1 - 1-dose 75+ series) 2037 Pneumococcal Vaccination Scr eening: Pts 0-19 & 19-64 yrs of age ([facility]) Aged Out No longer eligible b ased on patient's age to complete this topic Medical Devices Not on file Insurance [facility] Care Teams Education Assistant Relationship Specialty Start Date End Date Eliseo Marks MD [address] [place] [address] [place] [id number] PCP - General Family Medicine 11/21/18
--- OUTSIDE RECORDS SUMMARY | 2024-04-10 13:49 | XMS_ITS | Encounter Summary ---
Author Organization [facility] Address [phone] [facility] [place] [address] Care Team Providers Care Bath Solution Maker Name Role Phone Jewel Rogers MD Primary Care Provider [phone] Jewel Rogers MD Unavailable [phone] Encounter Details Date Type Department Care Team (Late Contact Info) Description 06/19/2020 Procedure Pass [facility] Endoscopy Admitting Dept Virtual Department [address] [place] [id number] Social History Tobacco Use Types Packs/Day Years Used Date Smoking Tobacco: Never Smokeless Tobacco: Never Alcohol Use Standard Drinks/Week Comments Not Currently 0 (1 standard drink = 0.6 oz pur e alcohol) Sex and Gender Information Value Date Recorded Sex Assigned at Male 03/25/2022 8:42 AM EST Gender Identity Male 03/25/2022 8:42 AM EST Sexual Orientation Straight 03/25/2022 8: 42 AM EST documented as of this encounter Plan of Treatment Upcoming Encounters Date Type Department Care Team (Late Contact Info) Description 04/16/2024 3:00 PM EST Appointment [facility] [place] [facility] [address] [place] [address] Jewel Rogers MD [address] [place] [address] 06/07/2024 10:30 AM EDT Office Visit [facility] [address] [place] [address] [address] David Levine MD [address] [place] [address], [address] [place] [address] [email or web address] documented as of this encounter Visit Diagnoses Not on filedocumented in this encounter Additional Health Concerns Assessment Noted Time PHQ-2 Depression Total Score: 0 03/21/19 21 1:09 PM EST documented as of this encounter Care Teams Bath Solution Maker Relationship Specialty Start Date End Date Jewel Rogers MD [address] [place] [address] PCP - General Internal Medicine 11/01/19 Jewel Rogers MD [address] [place] [address] Insurance Assigned Provider 06/18/23 documented as of this encounter Additional Source Comments The information contained in this document represents components of the legal health record. It is not the complete legal health record.[facility]
== END 2024-04-10 12:54 | disposition home or self-care (01) ==
LOC: HO.US 12:53
PROVIDERS: PCP Internal Medicine; Visit Provider Student in an Organized Health Care Education/Training Program
DX: I83.12 Varicose veins of left lower extremity with inflammation (principal)
CPT/HCPCS: 36482; 36483

== ENCOUNTER → 2024-04-10 12:57 | Outpatient (BNV) | payer BC, SELFPAY | PROVIDERS: PCP Internal Medicine; Visit Provider Student in an Organized Health Care Education/Training Program | DX: I83.892 Varicose veins of left lower extremity with other complications (principal) | CPT/HCPCS: 36482; 36483 ==

== ENCOUNTER 2024-04-18 08:22 | Outpatient (REF) | payer BC, SELFPAY ==
--- NOTE | ~2024-04-18 | US_ITS ---
EXAMINATION: US LOWER EXTREMITY VENOUS (REFLUX EXAM), RIGHT LOWER EXTREMITY CLINICAL INFORMATION: Venous insufficiency. Status post venous ablation left great and small saphenous vein. COMPARISON: None. TECHNIQUE: Color flow triplex imaging and compression Doppler was performed to evaluate both the deep and the superficial systems bilaterally. To evaluate the superficial system, the examination was performed in the upright position. Color-flow Doppler ultrasound and compression ultrasound were utilized. In addition, maneuvers were utilized to demonstrate reflux. FINDINGS: 1. DEEP VENOUS ULTRASOUND OF THE RIGHT LOWER EXTREMITY: Common Femoral Vein: Compressible, normal respiratory variation and augmented flow. Femoral Vein: Compressible, normal color flow and augmentation. Popliteal Vein: Compressible, normal augmentation. Deep Reflux: There is no evidence of reflux in the deep system in either the common femoral vein, superficial femoral or the popliteal vein. There is no evidence of a Corcoran's cyst. 2. SUPERFICIAL ULTRASOUND WITH DOPPLER OF RIGHT LOWER EXTREMITY: GREAT SAPHENOUS VEIN: Saphenofemoral Junction: 0.6 cm; Reflux: 0 ms Proximal Thigh: 0.8 cm; Reflux: 0 ms Mid Thigh: 0.3 cm; Reflux: 0 ms Distal Thigh: 0.4 cm; Reflux: 0 ms At Knee: 0.2 cm; Reflux: 0 ms Proximal Calf: 0.4 cm; Reflux: 0 ms Mid Calf: 0.3 cm; Reflux: 720 ms Distal Calf: 0.3 cm; Reflux: 0 ms DUPLICATED MEDIAL GREAT SAPHENOUS VEIN: Diameter: None imaged Reflux: NA DUPLICATED LATERAL GREAT SAPHENOUS VEIN: Diameter: 0.2 cm. Reflux: NA SMALL SAPHENOUS VEIN: Saphenopopliteal Junction: 0.1 cm; Reflux: 0 ms Proximal: 0.1 cm; Reflux: 0 ms Distal: 0.2 cm; Reflux: 0 ms VEIN OF GIACOMINI: Size: 0.3 cm. Reflux: NA PERFORATORS: Location: Mid thigh and mid to distal calf. Size: range: 0.2-0.3 cm. Reflux: NA VARICOSITIES: Location: Mid calf. Size: 0.2 cm. Reflux: No more than 2176 ms. US/US venous duplex LE BI IMPRESSION: Right: Venous insufficiency, grade saphenous vein at the mid calf region. Perforators in the mid thigh and mid to distal calf without reflux. 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 Electronically signed by: Domenico Bonilla MD 04/18/2024 01:14 PM EST
--- OUTSIDE RECORDS SUMMARY | 2024-04-18 08:25 | XMS_ITS | Encounter Summary ---
Author Organization [facility] Address [phone] [address] [place] [address] Care Team Providers Care Commissioner Of Conciliation Name Role Phone Jewel Rogers MD Primary Care Provider [phone] Jewel Rogers MD Unavailable [phone] Encounter Details Date Type Department Care Team (Late st Contact Info) Description 12/02/2022 Procedure Pass [facility], [address] [place] [address] Social History Tobacco Use Types Packs/Day Years [...] high school, GED, job training, learning the Pakistani language, technical skills, or developing parenting skills)? [...] Care Team (Late st Contact Info) Description 05/25/2024 11:30 AM EDT Appointment [facility] Internal Medicine [address] [place] [address] Jewel Rogers MD [address] [place] [address] 06/07/2024 10:30 AM EDT Office Visit [facility] [address] [place] [address] [facility] [address] [place], [place] [phone] David Levine MD [address] [facility], [address] [place] [address] documented as of this encounter Visit Diagnoses Not on filedocumented in this encounter Additional Health Concerns Assessment Noted Time PHQ-2 Depression Total Score: 0 03/25/19 23 8:34 AM EST documented as of this encounter Care Teams Commissioner Of Conciliation Relationship Specialty Start Date End Date Jewel Rogers MD [address] [place] [address] [email or web address] PCP - General Internal Medicine 11/01/19 Jewel Rogers MD [address] [place] [address] [email or web address] Insurance Assigned Provider 06/18/23 documented as of this encounter Additional Source Comments The information contained in this document represents components of the legal health record. It is not the complete legal health record.[facility]
--- OUTSIDE RECORDS SUMMARY | 2024-04-18 08:25 | XMS_ITS | Encounter Summary ---
Author Organization [facility] Address [phone] [address] [place] [address] Care Team Providers Care Belting Inspector Name Role Phone Jewel Rogers MD Primary Care Provider [phone] Jewel Rogers MD Unavailable [phone] Reason for Visit * Reason Onset Date Comments PA request 01/03/2024 Encounter Details Date Type Department Care Team (Late st Contact Info) Description 01/03/2024 Telephone [facility] Internal Medicine [address] [place], [place] [phone] Pallavi Paige [place] [address] [place], [place] [phone] [email or web address] PA request Social History Tobacco Use Types [...] high school, GED, job training, learning the [place] language, technical skills, or developing parenting skills)? [...] Received a call from [place] pharmacist at [facility] states Dr. Julian had ordered pt Rest[facility] which needs a PA, Desmond contacted Dr. Julian office and was told PA needs to come from our office. Contacted Dr. Julian office was placed on hold and then transferred to on Kiara's at Dr. Julian office which states Desmond from [facility] called our office states restasis that Dr. Julian had ordered for pt needsa PA but Desmond was told PA needs to come from our office but this PA needs to come from original prescriber. Left our contact info along with [facility]'s phone number. Contacted Desmond at [facility] informed him that I've LM (as shown above) with Dr. Julian office and told [place] PA should be from original prescriber-I've left them with [facility]'s contact info. documented in this encounter Plan of Treatment Upcoming Encounters Date Type Department Care Team (Late st Contact Info) Description 05/25/2024 11:30 AM EDT Appointment [facility] [employer] Internal Medicine [address] [place] [address] Jewel Rogers MD [address] [place] [address] 06/07/2024 10:30 AM EDT Office Visit [facility] [address] [place] [address] [address] [place] [address] David Levine MD [address] [facility], [address] [place] [address] [email or web address] documented as of this encounter Visit Diagnoses Not on filedocumented in this encounter Additional Health Concerns Assessment Noted Time PHQ-2 Depression Total Score: 0 04/14/19 24 3:35 PM EST documented as of this encounter Care Teams Belting Inspector Relationship Specialty Start Date End Date Jewel Rogers MD [address] [place] [address] [email or web address] PCP - General Internal Medicine 11/01/19 Jewel Rogers MD [address] [place] [address] [email or web address] Insurance Assigned Provider 06/18/23 documented as of this encounter Additional Source Comments The information contained in this document represents components of the legal health record. It is not the complete legal health record.[facility]
--- OUTSIDE RECORDS SUMMARY | 2024-04-18 08:25 | XMS_ITS | Data Portability ---
Author Organization [facility], [facility] Address [address] [place] [address] Care Team Providers Care Supervisor [employer] Name Role Phone RAHUL MULLEN Primary Care [...] was notified that the provider location is [facility] Patient location: home During the visit the patient? s medical history and medical record were reviewed. The patient was notified to call our office for worsening or urgent symptoms. Not available 08/29/2019 09:02:35 Plan of Treatment Reminders Order Date Submit Date Provider Last Modified By Organization Details Last Modified Time Details Appointments None recorded. Lab lipid panel, serum 2019 [facility], [address] [place], [address], 0 10:29:54 ALT (alanine aminotransf erase), serum or plasma 2019 [facility], [address] [place], [address], 0 10:29:54 PSA, serum or plasma 2019 020 [facility], [address] [place], [address], 0 10:29:54 Referral sports medicine referral 2018 019 [email or web address] Lentz MD, [address] [place], [address], 9 15:21:26 physical therapy knee referral - Left knee OAHip and Core Strengtheni ngImprove balance and gaitImprove ant/post chain strengthHEP 2018 019 [email or web address] At Physical Therapy - [facility] [address] [place], [address], 9 15:45:46 Procedures None recorded. Surgeries None recorded. Imaging XR, knee, weightbeari ng - weightbeari ng x-rays left knee r/o OA 2018 019 [facility] (Imaging), [address], [place], [address], 9 14:43:48 barium swallow study - Patient with difficulty swallowing food; food is getting stuck with choking episodes. No problems with liquids. 2018 019 [facility], [address] [place], [address], 9 12:41:15 XR, forearm 2018 019 [facility] (Imaging), [address] , [place], [address], 9 10:00:55 Medication Orders None recorded. Patient TargetsNo targets recorded. Patient Instructions Encounter Date Encounter Id Patient Instructions Last Modified By Organization Details Last Modified Time 06/12/2018 [id number] Use Ice and anti-inflammatory medication as needed [...] their care. Not available 06/12/2018 13:20:22 03/01/2019 [id number] high cholesterol lifestyle changes Not available 03/01/2019 [...] expectancy. [email or web address] Not available 03/01/2019 08:11:10 08/29/2019 [id number] high cholesterol lifestyle changes Not available 08/29/2019 [...] signed Davida neal Physic chapo: Guerda Salgado [facility] (Imaging) [address], [place], [address], 06/13/2018 11:24:52 01/31/20 19 01/30/2019 bipin covarrubias study No observ ation record ed. [facility] [address] [facility], [place], [address], 01/30/2019 18:33:51 03/01/20 19 03/01/2019 XR, forea [...] Davida neal Physic chapo: Steve Messina MD [facility] (Imaging) [address] [place], [address], 03/04/2019 07:28:52 Result Notes None recorded. Problems Name Problem SNOMED Code Status Onset Date Resolution Date Notes Provider Name and Address Organization Details Recorded Time Obesity 435397498 Active 2015 Eliseo Marks MD [address] [place] [address], [phone] , [facility] 6 09:07:46 Onychomyco sis of toenails 023452491 Active 2016 Eliseo Marks MD [address] [place] [address], [address] , [facility] 7 09:50:48 History of cholecyste ctomy 105850762 Active 2017 Eliseo Marks MD [address] [place] [address], [address] , [facility] 8 16:07:15 Small bowel obstructio n 092555660 Active 2017 Eliseo Marks MD [address] [place] [address], , [facility] 8 13:54:35 Thrombophl ebitis 58018323 Active 2017 Eliseo Marks MD [address] [place] [address], , [facility] 8 13:54:55 Gastroesop hageal reflux disease 672769360 Active 2018 Eliseo Marks MD [address] [place] [address], [address] , [facility] 9 08:51:59 Laryngopha ryngeal reflux 024348648 Active 2018 Eliseo Marks MD [address] [place] [address], [address] , [facility] 9 08:52:52 Mixed hyperlipid emia 148300646 Active 2000 Eliseo Marks MD [address] [place] [address], [address] , [facility] 5 09:09:31 Headache 03096697 Completed 10/02/2014 Antwon Jennings III, MD [address] [place] [address], [address] , [facility] 5 17:00:34 Sleep apnea 04664523 Active 2001 Eliseo Marks MD [address] [place] [address], [address] , [facility] 5 09:09:31 Carpal tunnel syndrome 73075390 Completed 200210/02/2014 Antwon Jennings III, MD [address] [place] [address], [address] , [facility] 5 17:00:34 Sleep hypoventil ation 923208024 Completed 08/18/2010 Not Available [facility] 3 03:10:12 Hip pain 75575975 Completed 200108/18/2010 Not Available [facility] 3 03:10:12 Sprain of ankle 61854927 Completed 200008/18/2010 Not Available [facility] 3 03:10:12 Contact dermatitis caused by detergent 70646633 Completed 200008/19/2010 Not Available [facility] 3 03:10:12 Esotropia 14328539 Completed 200808/18/2010 Not Available [facility] 3 03:10:12 Joint pain in ankle and foot Completed 200006/07/2011 Not Available [facility] 3 03:10:12 Disorder of lipid metabolism 858599181 Completed 199908/19/2010 Not Available [facility] 3 03:10:12 Congenital valgus deformity of foot 26233790 Completed 200806/07/2011 Not Available [facility] 3 03:10:12 Pneumonia 065674067 Completed 200806/07/2011 Not Available [facility] 3 03:10:12 Verruca vulgaris 36595434 Completed 200601/31/2013 Not Available [facility] 3 02:02:13 Hand joint pain 033530495 Completed 200008/18/2010 Not Available [facility] 3 03:10:12 Knee pain Completed 200108/18/2010 Not Available [facility] 3 03:10:12 Injury of knee 256901218 Completed 200008/18/2010 Not Available [facility] 3 03:10:12 Dysphagia 02305087 Completed 200008/18/2010 Not Available [facility] 3 03:10:12 Disorder of eye movements 49386340 Completed 08/18/2010 Not Available [facility] 3 03:10:12 Synovitis/ tenosynovi tis - hand 838834166 Completed 200708/18/2010 Not Available [facility] 3 03:10:12 Sprain of knee and leg Completed 200606/07/2011 Not Available [facility] 3 03:10:12 Low back pain 970296082 Completed 200406/07/2011 Not Available [facility] 3 03:10:12 Hyperlipid emia 26498887 Completed 200206/07/2011 Not Available [facility] 3 03:10:12 Pain in wrist 79737800 Completed 200508/18/2010 Not Available [facility] 3 03:10:12 Problem Notes None recorded. Procedures Surgical History Date Name Laterality Status Provider Name and Address Organization Details Recorded Time 8 Post hospital/SNF follow-up/Trans itional Care completed Manisha Ann LPN [facility] 07/20/2017 15:47:53 7 POC Strep Testing completed Aida Severino RN [facility] 02/23/2017 11:47:28 6 POC Flu Testing completed Yari Oconnor MA [facility] 07/01/2015 09:52:58 3 Treatment and Advice completed Tish Michael, PT [address] [place], [address], [facility] 10/09/2012 09:06:06 2 Destruction of skin lesion completed Antwon Jennings III, MD [address] [place] [address], [address], [facility] 06/08/2011 09:13:07 Imaging Results Imaging Date Name Status LastModified by Organization Details LastModified Time 06/12/2018 XR, knee, weightbearing completed [facility] (Imaging) [address] [place], [address], 06/13/2018 11:24:52 01/30/2019 barium swallow study completed [facility] [address] [place], [address], 01/30/2019 18:33:51 03/01/2019 XR, forearm completed [facility] (Imaging) [address] [place], [address], 03/04/2019 07:28:52 Procedure Notes None recorded. Medical Equipment None Reported. Allergies Allergen ID Allergen Name Allergen Category Reaction Reaction Severity Criticality Documentation Date Start Date Code Code System Note Provider Name and Address Organization Details Recorded Time 7979 codeine medicatio n Not available Not available Not available 06/18/2008 2670 RxNorm Not Available [facility] 1 06:05:20 7980 propoxyph traci hydrochlo ride medicatio n Not available Not available Not available 06/18/2008 15723 RxNorm Not Available [facility] 1 06:05:20 7981 morphine medicatio n Not available Not available Not available 06/18/2008 7052 RxNorm Not Available [facility] 1 06:05:41 7982 Demerol medicatio n Not available Not available Not available 06/18/2008 24613 1 RxNorm Not Available [facility] 1 06:05:20 Medications Name Sig Start Date [...] e 50 mcg/actua tion nasal spray,amy pension [place] 2 sprays every day by intranas al [...] route as directed . 07/20 completed per [facility] d/c summary Not Available Not Available Not [...] Available Not Available Not Available Fluarix Quad 2445-3839 (PF) 60 mcg (15 mcg x 4)/0.5 mL IM syringe 02/16 completed Not Available Not Available Not Available Tylenol 325 mg capsule Take 1 capsule every 4 hours by oral route as needed for 5 days. 10/12 completed per [facility] d/c summary PRN Not Available Not Available Not Available Vitals Date Recorded Body height Body mass index (BMI) Body weight Heart rate Systolic blood pressure Diastolic blood pressure Provider Name and Address Organization Details Last Updated DateTime 9 177.8 cm 35.5 kg/m2 597676. 75 g 68 /min 118 mm[Hg] 78 mm[Hg] Manisha Ann LPN [facility] 9 10:26:39 Date Recorded Body height Heart rate Systolic blood pressure Diastolic blood pressure Provider Name and Address Organization Details Last Updated DateTime 06/12/2018 177.8 cm 68 /min 110 mm[Hg] 70 mm[Hg] Adrianne Murphy [facility] 06/12/2018 13:04:22 Date Recorded Body height Body mass index (BMI) Body weight Heart rate Systolic blood pressure Diastolic blood pressure Provider Name and Address Organization Details Last Updated DateTime 9 177.8 cm 35.6 kg/m2 169996. 91 g 68 /min 112 mm[Hg] 78 mm[Hg] Rhonda Lynn [facility] 9 08:22:36 Date Recorded Body height Body mass index (BMI) Body weight Heart rate Systolic blood pressure Diastolic blood pressure Provider Name and Address Organization Details Last Updated DateTime 9 177.8 cm 36 kg/m2 892766. 68 g 76 /min 114 mm[Hg] 74 mm[Hg] Manisha Ann LPN [facility] 9 08:27:55 Date Recorded Body height Body mass index (BMI) Body weight Provider Name and Address Organization Details Last Updated DateTime 08/29/2019 177.8 cm 34.5 kg/m2 078958.92 g Ana Rubio [facility] 08/29/2019 08:45:24 Social History Question Answer Notes LastModified by Organizat ion Details LastModified Time Tobacco Smoking Status Never Smoker 08/29/[address] [facility] 03/01/2019 08:25:21 Do You Have An Advance Directive? Yes [email or web address] Information not available 01/28/2011 What Is Your Level Of Alcohol Consumption? None 08/29/19 JI [email or web address] Information not available 10/04/2012 Do You Wear A Helmet When Biking? No Information not available 01/24/2015 What Is Your Level Of Caffeine Consumption? None Information not available 01/24/2015 How Much Tobacco Do You Chew? None [email or web address] Information not available 10/04/2012 What Type Of [...] 01/24/2015 Does The Patient Have Difficulty Speaking Tuvaluan? No Information not available 01/24/2015 Does The Patient Have Difficulty Reading Tuvaluan? No Information not available 01/24/2015 Patient Has [...] virus, trivalent, preservative 1 completed Not Available [facility] 03/31/2019 02:37:15 Influenza, split virus, trivalent, preservative 2 completed Not Available [facility] 03/31/2019 02:34:57 Influenza, split virus, trivalent, PF 3 completed Not Available [facility] 03/31/2019 02:18:57 Tdap 0 completed Not Available [facility] 01/27/2011 05:22:52 Influenza, split virus, trivalent, PF 4 completed Not Available [facility] 03/31/2019 02:19:22 Influenza, split virus, quadrivalent, PF 5 completed Not Available [facility] 03/31/2019 02:25:39 Influenza, split virus, quadrivalent, PF 6 completed Not Available [facility] 03/31/2019 02:25:33 Influenza, split virus, quadrivalent, preservative 7 completed [facility] 02/16/2017 09:33:27 Influenza, split virus, quadrivalent, preservative 8 completed Not Available [facility] 04/14/2019 02:10:43 Influenza, split virus, quadrivalent, preservative 9 completed [facility] 01/29/2019 08:24:45 Influenza, split virus, trivalent, preservative 0 completed Not Available [facility] 03/31/2019 02:27:45 Hep A, adult 0 completed Not Available [facility] 03/31/2019 02:16:56 Past Encounters Encounter ID Performer Location Encounter Start Date Encounter Closed Date Diagnosis/Indication Diagnosis SNOMED-CT Code Diagnosis ICD10 Code Diagnosis Note [id number] [facility], OFFICE [address] [place] [address] 02/11/2000 09:45:00 04/03/2008 02:02:29 [id number] [facility], OFFICE [address] [place] [address] 07/22/2000 14:15:00 04/03/2008 02:02:29 [id number] [facility], OFFICE [address] [place] [address] 12/19/2000 13:45:00 04/03/2008 02:02:29 [id number] Radiology , [facility] [address] [place] [id number] 12/19/2000 00:00:00 04/03/2008 02:02:29 [id number] Radiology , [facility] [address] [place] [id number] 12/19/2000 15:00:00 04/03/2008 02:02:29 [id number] Radiology , [facility] [address] [facility] [place] [id number] 12/22/2000 10:45:00 04/03/2008 02:02:29 [id number] [facility], OFFICE [address] [place] [address] 04/26/2001 09:45:00 04/03/2008 02:02:29 [id number] LAB - [facility] [address] [place] [id number] 09/05/2001 13:52:56 04/03/2008 02:02:29 [id number] LAB - [facility] [address] [facility] [place] [id number] 02/06/2002 07:48:51 04/03/2008 02:02:29 [id number] [facility], OFFICE [address] [place] [id number] 01/31/2002 11:04:40 04/03/2008 02:02:29 [id number] [facility], OFFICE [address] [place] [address] 06/21/2002 14:04:06 04/03/2008 02:02:29 [id number] [facility] [place] [id number] 07/31/2002 07:30:25 04/03/2008 02:02:29 [id number] [facility] [place] [address] 01/22/2003 13:48:28 01/22/2003 14:02:03 [id number] [facility], OFFICE [address] [place] [address] 02/01/2003 08:36:28 02/01/2003 16:17:24 [id number] [facility] [place] [id number] 04/02/2003 12:21:43 04/02/2003 13:01:22 [id number] [facility] [place] [id number] 08/08/2003 07:25:32 08/08/2003 11:17:20 [id number] [facility] [place] [id number] 01/15/2004 07:43:16 01/15/2004 09:17:51 [id number] [facility], OFFICE [address] [place] [id number] 02/11/2004 09:23:22 02/11/2004 17:15:36 [id number] [facility] [place] [id number] 07/15/2004 07:38:47 07/15/2004 09:58:32 [id number] [facility], [address]ICE [address] [place] [id number] 10/22/2004 14:59:16 10/22/2004 17:13:31 [id number] [facility] [place] [id number] 01/19/2005 07:33:15 01/19/2005 09:35:57 [id number] [facility], OFFICE [address] [place] [id number] 02/17/2005 15:40:15 02/17/2005 17:29:34 [id number] [facility] [place] [address] 07/20/2005 07:27:31 07/20/2005 16:10:01 [id number] LAB - [facility] [address] [place] [id number] 02/08/2006 09:50:40 02/08/2006 09:50:47 [id number] [facility] , [facility] [address] [place] [id number] 02/22/2006 11:57:45 02/22/2006 14:05:00 [id number] [facility] , [facility] [address] [place] [id number] 02/22/2006 00:00:00 04/03/2008 02:02:29 [id number] [facility], OFFICE [address] [place] [address] 02/22/2006 11:53:18 02/22/2006 14:19:19 [id number] [facility] [address] [place] [id number] 08/17/2006 10:12:00 08/17/2006 10:12:08 [id number] [facility], OFFICE [address] [place] [id number] 02/28/2007 10:39:01 04/03/2008 02:02:29 [id number] [facility] [address] [place] [id number] 03/24/2007 09:36:18 03/24/2007 09:36:21 [id number] [facility], OFFICE [address] [place] [id number] 03/28/2007 09:29:46 04/03/2008 02:02:29 [id number] [facility] [address] [place] [id number] 07/04/2007 10:47:14 07/04/2007 10:47:17 [id number] [facility], OFFICE [address] [place] [id number] 10/27/2007 14:46:23 04/03/2008 02:02:29 [id number] [facility] [address] [place] [id number] 03/26/2008 09:09:18 03/26/2008 09:09:27 [id number] [facility], OFFICE [address] [place] [id number] 06/18/2008 11:30:17 06/19/2008 08:29:54 [id number] [facility] , [facility] [address] [place] [id number] 06/18/2008 12:40:25 06/20/2008 13:40:10 [id number] [facility], OFFICE [address] [place] [id number] 09/10/2008 13:46:04 09/11/2008 10:54:14 [id number] Radiology , [facility] [address] [place] [address] 06/18/2008 00:00:00 01/09/2009 02:00:52 [id number] Podiatry, [facility] [address] [place] [id number] 06/28/2008 09:05:55 06/28/2008 16:03:40 [id number] LAB - [facility] [place] [id number] 09/24/2008 15:16:55 09/24/2008 15:17:04 [id number] [place] [address] [place] [address] 02/21/2009 09:47:07 02/24/2009 08:41:45 [id number] [facility] [place] [id number] 03/28/2009 09:58:10 03/28/2009 14:26:45 [id number] [facility] [place] [id number] 06/02/2009 15:48:09 06/03/2009 08:55:41 [id number] Podiatry, [facility] [place] [id number] 09/23/2009 15:27:39 09/23/2009 17:36:49 [id number] [place] [address] [place] [address] 01/20/2010 14:46:49 01/21/2010 13:35:41 [id number] [facility] [place] [address] [address] [place] [address] 01/29/2010 16:16:25 01/30/2010 10:09:31 [id number] [facility] [place] [address] [place] [id number] 06/17/2010 15:25:42 06/18/2010 09:45:[id number] [place] [address] 08/19/2010 09:14:11 08/20/2010 08:26:11 [id number] [facility], OFFICE [address] [place] [address] [place] [address] 09/21/2010 13:39:31 09/21/2010 17:04:39 [id number] [facility], OFFICE [address] [place] [address] [address] [place], [place] [id number] 10/19/2010 13:32:00 10/19/2010 14:24:40 [id number] [facility], [address] [place] [address] 10/27/2010 09:34:56 10/27/2010 10:18:41 [id number] [facility], [address] [place], [place] [id number] 11/06/2010 15:37:59 11/06/2010 16:19:04 [id number] [facility], [address] [place], [place] [id number] 12/09/2010 09:34:05 12/09/2010 09:50:23 [id number] [facility], [address] [place], [place] [id number] 01/15/2011 09:26:29 01/15/2011 10:01:01 [id number] [facility], [address] [place] [address] 03/05/2011 15:19:38 03/05/2011 15:44:11 [id number] Podiatry, [address] [place] [address] 03/19/2011 11:53:37 03/19/2011 12:35:31 [id number] [facility], [address] [place], [place] [address] 06/08/2011 08:13:45 06/08/2011 08:37:09 [id number] [facility], [address] [place], [place] [id number] 09/02/2011 14:39:15 09/02/2011 14:58:37 [id number] Frank LEE [address] [place], [place] [address] 12/09/2011 08:36:17 12/10/2011 10:13:33 [id number] Malinda LEE [address] [place] [address] 10/04/2012 11:12:19 10/04/2012 14:50:41 [id number] [facility], [address] [place] [address] 10/09/2012 08:34:15 10/10/2012 10:10:09 [id number] [facility], [address] [place] [address] 10/11/2012 16:34:14 10/12/2012 09:44:07 [id number] [facility], [address] [place] [address] 10/19/2012 08:01:14 10/20/2012 08:20:33 [id number] [facility], [address] [place] [address] 10/26/2012 08:07:25 10/26/2012 15:19:53 [id number] [facility], [address] [place] [address] 11/02/2012 08:39:52 11/06/2012 11:35:10 [id number] [facility], [address] [place] [address] 11/09/2012 08:59:29 2012 09:16:16 [id number] Jaleesa Vasquez LPN , [facility], OFFICE [address] [place] [id number] 11/23/2012 16:18:15 11/23/2012 16:28:00 Influenza vaccine needed [id number] 313 [id number] , [facility], OFFICE [address] [place] [id number] 12/12/2012 08:15:56 12/12/2012 08:46:59 Mixed hyperlipidemia 000757944 Cholestero l is at goal Continue to work on diet and exercise as discussed [facility] th examination [id number] see Risk Assessment and Lifestyle Change Counseling section above Counseling [id number] Joint pain 07160692 Benign pro static hyperplasia without outflow obstruction [id number] MD JESUS Logan III, [facility], OFFICE [address] [place] [id number] 01/31/2013 14:28:06 01/31/2013 14:53:29 Acute upper respiratory infection 92197979 Educated patient that URI is a viral [...] or failure to resolve in 2-4 weeks. [id number] Malinda Damico , [facility], OFFICE [address] [place] [address] 01/15/2014 14:43:00 01/15/2014 15:35:51 Mixed hyperlipidemia 416892816 Cholestero l is at goal Continue to work on diet and exercise as discussed Adult heal th examination [id number] see Risk Assessment and Lifestyle Change Counseling section above Counseling [id number] Influenza vaccine needed [id number] 106 Multiple joint pain 39118962 Familial e ssential myoclonus 88165778 Sleep apnea 71225096 [id number] Eileen Mcdaniel [facility], OFFICE [address] [place] [address] 08/30/2014 10:16:24 08/30/2014 10:41:55 Contact dermatitis caused by urushiol from [place] poison jean claude [id number] Recurrent poison jean claude dermatitis (annually) . Now involving extensivel y on his left forearm. Exposure likely on 3 days ago. Became worse 2 days ago. Strategies to prevent future exposure discussed. Treatment options discussed. No clinical evidence of cellulitis . Will treat with Prednisone taper over 2 weeks. Indication s for UC/ER use reviewed. [id number] [facility] [address] [place] [address] 09/04/2014 16:57:10 09/04/2014 17:20:47 Contact dermatitis caused by urushiol from [place] poison jean claude [id number] Kajal LEE, [facility], OFFICE [address] [place] [address] 10/02/2014 13:34:52 10/02/2014 13:57:19 Muscular headache 757100631 Neck pain 21941656 [id number] [facility], [address] [place] [id number] 10/03/2014 15:32:42 10/04/2014 09:19:16 Neck pain [id number] Radha May Physical [facility], [address] [place] [address] 10/07/2014 12:48:26 10/07/2014 16:59:28 Neck pain [id number] [facility], [address] [place] [address] 10/10/2014 14:52:02 10/11/2014 07:55:57 Neck pain [id number] Perla Saavedra , [facility], OFFICE [address] [place] [id number] 01/24/2015 08:30:44 01/24/2015 09:27:27 Screening for disorder 756171808 Z11.59 Adult heal th examination 490838079 Z00.00 see Risk Assessment and Lifestyle Change Counseling section above Counseling 035943026 Z71 .9 Mixed hyperlipidemia 267 565040 E78.2 Cholestero l is at goal Cholestero l is not at goal Continue to work on diet and exercise as discussed Benign pro static hyperplasia without outflow obstruction 480247814 N40.0 Sleep apnea 20419945 G47 .30 Active or passive immunization 306838660 Z23 [id number] Claudette العراقي , [facility], OFFICE [address] [place] [id number] 1 04/14/2015 15:58:54 04/14/2015 16:14:13 Bronchitis 96451773 J40 Acute uppe r respiratory infection 89826182 J06.9 Educated patient that URI is a [...] or failure to resolve in 2-4 weeks. [id number] Janell Ochoa LPN , [facility], OFFICE [address] [place] [id number] 07/01/2015 09:39:52 07/01/2015 10:18:26 Influenza 9498390 J11.1 Acute sinusitis 86873886 J01.90 [id number] Eliseo Marks MD , [facility], OFFICE [address] [place] [id number] 1 02/18/2016 08:40:52 02/18/2016 09:13:20 Adult health examination 246245745 Z00.00 see Risk Assessment and Lifestyle Change Counseling section above Counseling 452462490 Z71 .9 Active or passive immunization 627034293 Z23 Bunion 080876687 M20.12 Obesity 949272886 E66.9 [id number] Rodrigo Mijares DPM Podiatry, [facility] [address] [place] [address] 02/19/2016 14:03:42 02/25/2016 12:18:50 Acquired hallux valgus 31367358 M20.12 [id number] Rodrigo Mijares DPM Podiatry, [facility] [address] [place] [address] 03/31/2016 11:38:07 04/13/2016 14:06:57 Acquired hallux valgus 35279760 M20.12 [id number] Rodrigo Mijares DPM Podiatry, [facility] [address] [place] [address] 05/19/2016 09:03:33 05/19/2016 09:49:00 Acquired hallux valgus 45324376 M20.12 [id number] Eliseo Marks MD , [facility], OFFICE [address] [place] [address] 02/16/2017 09:08:59 02/16/2017 10:01:39 Adult health examination 115114058 Z00.00 see Risk Assessment and Lifestyle Change Counseling section above Counseling 783588163 Z71 .9 Mixed hyperlipidemia 267 840979 E78.2 Cholestero l is at goal Cholestero l is not at goal Continue to work on diet and exercise as discussed Onychomyco sis of toenails 581536532 B35.1 Sleep apnea 36225729 G47 .30 [id number] Selene Panda MD , [facility], OFFICE [address] [place], [place] [address] 02/23/2017 11:35:03 02/23/2017 12:19:25 Sore throat 464920915 J02.9 Your sore throat is not felt [...] to tolerate any oral intake. Acute sinusitis 95482636 J01.90 Your diagnosis is sinusitis. Most of [...] sooner.Def initely bring it on the trip [id number] Eliseo Marks MD , [facility], OFFICE [address] [place] [address] 06/01/2017 07:49:45 06/01/2017 08:27:41 Pain of right wrist 9824713152 06436 M25.531 Pain of right calf 81463 51596 887485 M79.729 [id number] Scooby Lentz MD Sports Medicine, [facility] 31 [facility] [place] [address] 06/13/2017 09:18:21 06/13/2017 14:31:16 Strain of calf muscle 907223414 S86.111A Markos his right calf pain in [...] weeks for reevaluati on. Pain in wrist 35331811 M 25.531 Markos his right wrist pain [...] may provide him some relief of symptoms. [id number] Eliseo Marks MD , [facility], OFFICE [address] [place] [address] 07/20/2017 15:46:00 07/20/2017 16:22:40 History of cholecystectomy 900307418 Z90.49 Obesity 708371136 E66.9 [id number] Rodrigo Mijares DPM Podiatry, [address] [address] 08/15/2017 15:23:47 08/16/2017 08:46:15 Onychomycosis 762580106 B35.1 [id number] Eliseo Marks MD , [facility], OFFICE [address] [place] [address] 08/17/2017 13:19:51 08/17/2017 13:59:16 Obesity 084478236 E66.9 Thrombophlebitis 8564135 1 I80.9 Small annie l obstruction 627201859 K56.609 History of cholecystectomy 103750359 Z90.49 Mixed hyperlipidemia 267 405448 E78.2 Cholestero l is at goal Cholestero l is not at goal Continue to work on diet and exercise as discussed [id number] Scooby Lentz MD Sports Medicine, [address] [address] 08/22/2017 13:56:07 08/22/2017 14:24:50 Strain of calf muscle 771555868 S86.111A Markos is a 56-year-ol d male [...] activity and attempt to participat e in racPENRITH. He does understand that he is at increased risk for reinjury with high intensity activity such as racquetbal l. He will plan a follow-up with me as needed for further care. Pain in wrist 82983268 M 25.531 Markos' right wrist pain and continue to believe is secondary to injury to is TFCC. Overall he is doing quite well now after a brief period of splinting but has not been participat ing in racTongaltbal [employer] due to his recent surgeries. I reviewed his diagnosis with him today in the office as well as discussing further treatment options including considerat ion of a corticoste roid injection as well as possible operative interventi on. At this point he would like to try returning to racqueCognuseal l to see how his pain is before deciding to proceed with the next step. He will plan follow-up with me in 4 weeks for reevaluati on if he has resumption pain at which time we can discuss potential advanced imaging for surgical planning versus a corticoste roid injection. [id number] Scooby Lentz MD Sports Medicine, [facility] 31 [facility] [place] [address] 09/26/2017 12:59:20 09/26/2017 13:16:39 Pain in wrist 82785510 M25.531 Markos is a 56-year-ol d male [...] worsening symptoms when he plays more aggressive racquetbal l. At this point he will participat e in activities as needed and wear his for splint for comfort. He will plan to follow up with me as needed for further care if he is having persistent or any worsening symptoms. [id number] Eliseo Marks MD , [facility], OFFICE [address] [place] [address] 10/12/2017 16:35:17 10/12/2017 17:00:49 Pre-surgery evaluation 998390306 Z01.284 [id number] Eliseo Marks MD , [facility], OFFICE [address] [place] [address] 02/22/2018 09:18:58 02/22/2018 12:00:16 Mixed hyperlipidemia 469663543 E78.2 Cholestero l is at goal Cholestero l is not at goal Continue to work on diet and exercise as discussed Adult [facility] examination 974840917 Z00.00 see Risk Assessment and Lifestyle Change Counseling section above Counseling 439497953 Z71 .9 Depression screening 171 377356 Z13.89 depression screening tool administer ed, entered into emr, scored and discussed, time greater than 7.5 minutes [id number] Eliseo Marks MD , [facility], OFFICE [address] [place] [id number] 05/17/2018 11:27:12 05/17/2018 12:10:41 Patellofemoral stress syndrome 037561683 M22.2X9 [id number] Eliseo Marks MD , [facility], OFFICE [address] [place] [address] 06/07/2018 10:20:14 06/07/2018 10:46:16 Osteoarthritis of left knee joint 8300707953 51583 M17.12 [id number] cSooby Lentz MD Sports Medicine, [facility] 31 [facility] [place] [facility] [place] [address] 06/12/2018 12:58:27 06/12/2018 13:25:38 Knee pain 89902277 M25.569 M25.562 Markos is a 57-year-ol d [...] a corticoste roid injection in the future. [id number] Noris Mendoza D.O. , [facility], OFFICE [address] [place] [address] 1 01/29/2019 08:14:41 01/29/2019 08:43:10 Difficulty swallowing food 706520116 R13.10 [id number] Eliseo Marks MD , [facility], OFFICE [address] [place] [address] 03/01/2019 08:05:40 03/01/2019 09:26:25 Mixed hyperlipidemia 900086455 E78.2 Cholestero l is at goal Cholestero l is not at goal Continue to work on diet and exercise as discussed Adult heal th examination 580709634 Z00.00 see Risk Assessment and Lifestyle Change Counseling section above Counseling 112014122 Z71 .9 Depression screening 171 108650 Z13.89 depression screening tool administer ed, entered into emr, scored and discussed, time greater than 7.5 minutes Pain in right arm 059384 004 M79.056 [id number] Eliseo Marks MD , [facility], OFFICE [address] [place] [address] 08/29/2019 08:41:27 08/29/2019 09:06:25 Mixed hyperlipidemia 739488316 E78.2 Cholestero l is at goal Cholestero l is not at goal Continue to work on diet and exercise as discussed Adult heal th examination 587983830 Z00.00 see Risk Assessment and Lifestyle Change Counseling section above Counseling 046695442 Z71 .9 Depression screening 171 210052 Z13.89 depression screening tool administer ed, entered [...] 1 [place]HMO) [id number] Markos Raymond [id number] Markos Raymond 06/12/2018 1 [place]) [id number] Markos Raymond [id number] Markos Raymond 01/29/2019 1 [place] [id number] Markos Raymond [id number] Markos Raymond 03/01/2019 1 [place]) [id number] Markos Raymond [id number] Markos Raymond 08/29/2019 1 [facility]: HMO BLUE VALUE PLUS (O) [id number] Markos Raymond [id number] Markos Raymond Notes Date Note Type Note Provider Name and Address Organization Details Recorded Time 9 text/html Still has pain in left knee, swelling. Unable to play racquetball as he would like. Eliseo Marks MD [address] [place] [address], [phone], [facility] 06/07/2018 10:38:47 9 text/html Markos is a [...] knee surgery or injections. Scooby Lentz MD [address] [place] [address], [phone], [facility] 06/12/2018 13:41:45 9 text/html Patient enters clinic [...] was normal . Noris Mendoza D.O. [address] [place], [phone], [facility] 01/29/2019 13:30:18 9 text/html Physical Exam/MaleReported bypatient.PHAPatient [...] ischemic heart disease; No peripheral vascular disease (22764); No diabetes; No carotid artery stenosis Associated [...] Not getting much exercise. Eliseo Marks MD [address] [place] [address], [phone], [facility] 03/01/2019 09:07:46 0 text/html [facility] HyperlipidemiaReported bypatient.Control:well controlled; improved since last visit; Patient understands medications are to lower cholesterol Compliance:compliant with medications; compliant with follow-up visits; compliant with diet Barriers to CareNo identified barriers to care Context:Nonsmoker; No ischemic heart disease; No peripheral vascular disease (42929); No diabetes; No carotid artery stenosis Associated [...] well. Working from home. Eliseo Marks MD [address] [place] [address], [phone], [facility] 08/29/2019 09:05:48
--- OUTSIDE RECORDS SUMMARY | 2024-04-18 08:25 | XMS_ITS | Clinical Summary ---
Author Organization [facility] Address [phone] [address] [place] [address] Care Team Providers Care Finishing Room Supervisor Name Role Phone Karon Rogers MD Primary Care Provider [phone] Karon Rogers MD Unavailable [phone] Allergies Active Allergy Reactions Criticality Noted Date [...] 600 mg by mouth. As needed Active ergocalciferol (DRISDOL) 50,000 unit capsuleIndication s:Vitamin D deficiency Take 1 capsule (50,000 Units total) by mouth once a week. 12 capsule 05/06/2023 Active Additional Information Patient not taking.Reported on 11/18/2023 cholecalciferol (VITAMIN D3) 25 MCG (1,000 unit) tablet Take 1,000 Units by mouth daily. Active omeprazole (PRILOSEC) 20 MG capsuleIndication s:Gastroesophagea l reflux disease, unspecified whether esophagitis present Take 1 capsule (20 mg total) by mouth daily. 90 capsule 2 04/16/2024 Active omeprazole (PRILOSEC) 20 MG capsuleIndication s:Gastroesophagea l reflux disease, unspecified whether esophagitis present Take 1 capsule (20 mg total) by mouth daily. 90 capsule 2 04/14/2023 5 Discontinue d(Reorder) Active Problems Problem Noted Date Diagnosed Date [...] rather take it on the trip to [facility] with you. In 4 weeks return to the lab for a Lyme titer. 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 Aware that the patient is trying to counter this with prescription glasses and for example. Make sure that you are well-hydrated, try to avoid screen time and while in [place] away from work see if the headaches resolve as that would be confirmation that the work in front of the computer screen is causing the headache. Screening for human immunodeficiency virus 03/25 Need for hepatitis C screening test 03/25/2022 Laryngopharyngeal reflux 07/10/2019 Gastroesophageal reflux disease 07/10/2019 Thrombophlebitis 07/10/2019 Hyperlipidemia 07/10/2019 Sleep apnea 07/10/2019 Encounters Date Type Department Care Team Description 04/16/2024 Refill [facility] Medicine [address] [place] [address] Karon Rogers MD Medication Refill 04/12/2024 Orders Only [facility] Internal Medicine [address] [place] [address] Avery Ramirez MD 04/11/2024 Orders Only [facility] Internal Medicine [address] [place] [address] Avery Ramirez MD from Last 3 Months Immunizations Name Administration Dates Next Due COVID-19 (Pre-01/03) Pfizer Vaccine, mRNA, PF 08/08/2020,07/17/2020 Hepatitis A, Adult 10/19/2016,01/29/2010 Hepatitis B Adult 11/17/2016,10/19/2016 Influenza Quadrivalent MDCK Preservative Free IM 11/21/2018 Influenza Quadrivalent Prese rvative Free IM 12/19/2022,12/12/2020,11/24/2019,2017,02/18/2016,01/24/2015 Influenza Quadrivalent w/ Preservative IM 12/13/2016 Influenza Trivalent Preserva tive Free IM 01/15/2014,11/23/2012 Influenza Trivalent w/ Prese rvative IM 12/09/2011,11/06/2010,01/20/2010 Influenza, Unspecified Formulation 11/26/2018 Tdap 03/26/2022,12/13/2009 Typhoid Inactivated 10/19/2016 Zoster recombinant [...] high school, GED, job training, learning the Burkinan language, technical skills, or developing parenting skills)? [...] Info) Description 05/25/2024 11:30 AM EDT Appointment [facility] Internal Medicine [address] [place] [address] Karon Rogers MD [address] [place] [address] [email or web address] 06/07/2024 10:30 AM EDT Office Visit [facility] [address] [place] [address] [address] [place], [place] [phone] David Levine MD [address] [facility], [address] [place], [place] [id number] [email or web address] Health Maintenance Due Date Last Done Comments HEPATITIS B SCREENING 1980 HEPATITIS C SCREENING 1980 HIV ONE-TIME SCREENING (18-65 YEARS) 1980 COLOGUARD 11/11/2007 FIT TEST 11/11/2007 FOBT 11/11/2007 SIGMOIDOSCOPY 11/11/2007 VIRTUAL COLONOSCOPY 11/11/2007 PNEUMOCOCCAL VACCINES (50+ years) (1 of 1 - PCV) 2012 HEPATITIS B VACCINES (3 of 3 - 19+ 3-dose series) 04/21/2017 11/17/2016, 10/19/2016 INFLUENZA VACCINE (#1) 2023 , 12/12/2020, 11/24/2019, Additional history exists COVID-19 VACCINE ( season) 2023 04/22/2021, 08/08/2020, 07/17/2020 DEPRESSION SCREENING 04/14/2024 04/14/2023 SCREENING FOR DIABETES 06/01/2026 06/02/2023, 2023 LIPID PANEL 09/13/2028 09/14/2023, 0211/2023, 04/22/2023, Additional history exists Adult Td,Tdap Booster [...] Procedure Name Priority Date/Time Associated Diagnosis Comments OUTSIDE US IMAGING??REPORT ONLY Routine 04/10/2024 4:56 PM EST OUTSIDE IMAGING Routine 04/10/2024 1:51 PM EST OUTSIDE IMAGING Routine 04/10/2024 10:46 AM EST ENDOSCOPY, COLON 11/18/2023 2:27 PM EDT LIPID PANEL Routine 09/14/2023 3:13 PM EDT Pure hypercholesterolemia from Last 3 Months or Most Recently Relevant to Health Maintenance Results * Outside US Imaging??Report Only (04/10/2024 4:56 PM EST) Historical Provider MD GIPSON US OP * Outside Imaging Report Only (04/10/2024 1:51 PM EST) Historical Provider IMKeisha XR CHEST * Outside Imaging Report Only (04/10/2024 10:46 AM EST) Historical Provider MD GIPSON XR CHEST * ENDOSCOPY, COLON (11/18/2023 2:27 PM EDT) Narrative Transcriptions David Rodriguez MD - 11/18/2023 2:27 PM EDT [facility] Patient Name: [place] Attending MD:: DAVID RODRIGUEZ MD, Procedure Date: 11/18/2023 2:27 PM Date of : 1960 Age: 63 Admit Type: Outpatient Gender: Male Room: [place] [address] Referring MD: KARON ROGERS MD Exam Type: [...] 2:27 PM Procedure Code(s): --- Professional --- 00700, Colonoscopy, flexible; diagnostic, including collection of specimen(s) by brushing or washing, when performed (separateprocedure) --- Technical --- 83384, Colonoscopy, flexible; diagnostic, including collection of specimen(s) by brushing or washing, when performed (separateprocedure) Diagnosis Code(s): --- Professional --- Z12.11, Encounter for screening for malignantneoplasm of colon --- Technical --- Z12.11, Encounter for screening for malignantneoplasm of colon CPT copyright 2021 [employer]. All rights reserved. The codes documented in this report are preliminary and upon child day care provider reviewmay be revised to meet current compliance requirements. Procedure Date: 11/18/2023 2:27:[address] [place] [address] Karon Rogers MD GI PROCEDURE ORDERAB LES * (ABNORMAL) Lipid panel (09/14/2023 3:13 PM EDT) HDL 45 mg/dL [facility] Comment: ? Interpretation <40 mg/dL: Low HDL cholesterol (major risk factor for CHD) Greater than or equal to 60 mg/dL: High HDL cholesterol ( negative risk factor for CHD) HDL - cholesterol is affected by a number of factors, e.g. smoking, excerise, hormones, sex and age. CHOLESTEROL 212 0 - 240 mg/dL [facility] TRIGLYCERIDES 217(H) 30 - 160 mg/dL [facility] LDL 124 50 - 129 mg/dL [facility] Comment: LDL levels in terms of risk for coronary heart disease: <100 mg/dL: Optimal 100-129 mg/dL: Near or above optimal 130-159 mg/dL: Borderline high 160-189 mg/dL: High >190 mg/dL: Very High CARDIAC RISK RATIO 4.7 3.4 - 5.0 C [facility] Blood 09/14/2023 3:13 PM EDT 09/14/2023 8:53 PM EDT Karon Rogers MD LAB BLOOD ORDERABLES [facility] [address] [place] [address] from Last 3 Months or Most Recently Relevant to Health Maintenance Care Teams Finishing Room Supervisor Relationship Specialty Start Date End Date Karon Rogers MD [address] [place] [address] [email or web address] PCP - General Internal Medicine 11/01/19 Karno Rogers MD [address] [place] [address] [email or web address] Insurance Assigned Provider 06/18/23 Additional Source Comments The information contained in this document represents components of the legal health record. It is not the complete legal health record.[facility]
--- OUTSIDE RECORDS SUMMARY | 2024-04-18 08:26 | XMS_ITS | Encounter Summary ---
Author Organization [facility] Address [phone] [address] [place] [address] Care Team Providers Care Mechanical Sound Technician Name Role Phone Jewel Rogers MD Primary Care Provider Jewel Rogers MD Unavailable [phone] Encounter Details Date Type Department Care Team (Late st Contact Info) Description 11/18/2023 Procedure Pass [facility] Endoscopy Admitting Dept Virtual Department [address] [place] [address] Social History Tobacco Use Types Packs/Day Years [...] high school, GED, job training, learning the Gabonese language, technical skills, or developing parenting skills)? [...] Info) Description 05/25/2024 11:30 AM EDT Appointment [facility] Internal Medicine [address] [place] [address] Jewel Rogers MD [address] [place] [address] 06/07/2024 10:30 AM EDT Office Visit [facility] [address] [facility] [address] [place] [address] David Levine MD [address] [facility], [address] [place] [address] documented as of this encounter Visit Diagnoses Not on filedocumented in this encounter Additional Health Concerns Assessment Noted Time PHQ-2 Depression Total Score: 0 04/14/19 24 3:35 PM EST documented as of this encounter Care Teams Mechanical Sound Technician Relationship Specialty Start Date End Date Jewel Rogers MD [address] [place] [address] PCP - General Internal Medicine 11/01/19 Jewel Rogers MD [address] [place] [address] Insurance Assigned Provider 06/18/23 documented as of this encounter Additional Source Comments The information contained in this document represents components of the legal health record. It is not the complete legal health record.[facility]
--- OUTSIDE RECORDS SUMMARY | 2024-04-18 08:26 | XMS_ITS | Encounter Summary ---
Author Organization [facility] Address [phone] [address] [place] [address] Care Team Providers Care Lacquer Coater Name Role Phone Jewel Rogers MD Primary Care Provider [phone] Jewel Rogers MD Unavailable [phone] Encounter Details Date Type Department Care Team (Late st Contact Info) Description 04/12/2024 Orders Only [facility] Internal Medicine [address] [address] Provider, MD Avery [address] [place], [place] [id number] Social History Tobacco Use Types Packs/Day Years [...] high school, GED, job training, learning the Slovenian language, technical skills, or developing parenting skills)? [...] Info) Description 05/25/2024 11:30 AM EDT Appointment [facility] Internal Medicine [address] [place] [address] Jewel Rogers MD [address] [place] [address] 06/07/2024 10:30 AM EDT Office Visit [facility] [address] [place] [address] [address] [place], [place] [phone] David Levine MD [address] [facility] [address] [place] [address] documented as of this encounter Procedures Procedure Name Priority Date/Time Associated Diagnosis Comments OUTSIDE IMAGING Routine 04/10/2024 1:51 PM EST OUTSIDE IMAGING Routine 04/10/2024 10:46 AM EST documented in this encounter Results * Outside Imaging Report Only (04/10/2024 1:51 PM EST) Historical Provider IMG XR CHEST * Outside Imaging Report Only (04/10/2024 10:46 AM EST) Historical Provider IMG XR CHEST documented in this encounter Visit Diagnoses Not on filedocumented in this encounter Additional Health Concerns Assessment Noted Time PHQ-2 Depression Total Score: 0 04/14/19 24 3:35 PM EST documented as of this encounter Care Teams Lacquer Coater Relationship Specialty Start Date End Date Jewel Rogers MD [address] [place] [address] PCP - General Internal Medicine 11/01/19 Jewel Rogers MD [address] [place] [address] Insurance Assigned Provider 06/18/23 documented as of this encounter Additional Source Comments The information contained in this document represents components of the legal health record. It is not the complete legal health record.[facility]
--- OUTSIDE RECORDS SUMMARY | 2024-04-18 08:26 | XMS_ITS | Encounter Summary ---
Author Organization [facility] Address [phone] [facility] [place] [address] Care Team Providers Care Arson Investigator Name Role Phone Jewel Rogers MD Primary Care Provider [phone] Jewel Rogers MD Unavailable [phone] Encounter Details Date Type Department Care Team (Late Contact Info) Description 06/19/2020 Procedure Pass [facility] Endoscopy Admitting Dept Virtual Department [address] [place] [id number] Social History Tobacco Use Types Packs/Day Years [...] Department Care Team (Late Contact Info) Description 05/25/2024 11:30 AM EDT Appointment [facility] [place] [facility] [address] [place], [place] [phone] Jewel Rogers MD [address] [place] [address] 06/07/2024 10:30 AM EDT Office Visit [facility] [place] [address] [address] David Levine MD [address] [place] [address], [address] [place] [address] [email or web address] documented as of this encounter Visit Diagnoses Not on filedocumented in this encounter Additional Health Concerns Assessment Noted Time PHQ-2 Depression Total Score: 0 03/21/19 21 1:09 PM EST documented as of this encounter Care Teams Arson Investigator Relationship Specialty Start Date End Date Jewel Rogers MD [address] [place] [address] PCP - General Internal Medicine 11/01/19 Jewel Rogers MD [address] [place] [address] Insurance Assigned Provider 06/18/23 documented as of this encounter Additional Source Comments The information contained in this document represents components of the legal health record. It is not the complete legal health record.[facility]
--- OUTSIDE RECORDS SUMMARY | 2024-04-18 08:26 | XMS_ITS | Encounter Summary ---
Author Organization [facility] Address [phone] [address] [place] [address] Care Team Providers Care Tie Cutter Name Role Phone Jewel Rogers MD Primary Care Provider Jewel Rogers MD Unavailable [phone] Reason for Visit * Reason Onset Date Comments Medication Refill 04/16/2024 Encounter Details Date Type Department Care Team (Late st Contact Info) Description 04/16/2024 Refill [facility] [address] [place] [address] Jewel Rogers MD [address] [place] [address] [email or web address] Medication Refill Social History Tobacco Use Types Packs/Day Years [...] high school, GED, job training, learning the [place] language, technical skills, or developing parenting skills)? [...] as of this encounter Progress Notes * Flakita Egan MA - 04/16/2024 4:48 PM EST Rx Care Gap Status - Instructions for Clinical Staff (prescriber discretion applies): n/a Visit Info Last visit: 05/06/2023 Jewel Rogers MD - Internal Medicine [facility] > Requested f/u: Not specified Upcoming visit: 05/25/2024 Jewel Rogers MD - Internal Medicine [facility] ACTIONS TAKEN BY Flakita Egan MA - No action needed by clinical staff Gastrointestinal Rx Protocol (H2 blockers, PPIs, stool softeners, laxatives) - omeprazole Criteria met; renew for up to 12 months. Visit in the past 24 months: Yes * Marilu Sales - 04/16/2024 4:27 PM EST Patient called requesting refill of omeprazole (PRILOSEC) 20 MG capsule to [facility] documented in this encounter Plan of Treatment Upcoming Encounters Date Type Department Care Team (Late st Contact Info) Description 05/25/2024 11:30 AM EDT Appointment [facility] [address] [place] [id number] Jewel Rogers MD [address] [place] [address] 06/07/2024 10:30 AM EDT Office Visit [facility] [address] [place] [address] [address] David Levine MD [address] [facility], [address] [place] [address] documented as of this encounter Visit Diagnoses Diagnosis Gastroesophageal reflux disease, unspecified whether esophagitis present documented in this encounter Additional Health Concerns Assessment Noted Time PHQ-2 Depression Total Score: 0 04/14/19 3:35 PM EST documented as of this encounter Care Teams Tie Cutter Relationship Specialty Start Date End Date Jewel Rogers MD [address] [place] [address] PCP - General Internal Medicine 11/01/19 Jewel Rogers MD [address] [place] [address] Insurance Assigned Provider 06/18/23 documented as of this encounter Additional Source Comments The information contained in this document represents components of the legal health record. It is not the complete legal health record.[facility]
== END 2024-04-18 08:23 | disposition home or self-care (01) ==
LOC: HO.US 08:22
PROVIDERS: PCP Internal Medicine; Visit Provider Student in an Organized Health Care Education/Training Program
DX: I83.891 Varicose veins of right lower extremity with other complications (principal); I87.2 Venous insufficiency (chronic) (peripheral)
CPT/HCPCS: 93970

== ENCOUNTER → 2024-04-18 08:25 | Outpatient (BNV) | payer BC, SELFPAY | PROVIDERS: PCP Internal Medicine; Visit Provider Radiology Diagnostic Radiology | DX: I87.2 Venous insufficiency (chronic) (peripheral) (principal) | CPT/HCPCS: 93970 ==